=== PATIENT | female | born 1955 | race Caucasian/White ===

== ENCOUNTER → 2018-12-24 | Outpatient (CLI) | payer SELFPAY ==
[2018-12-24 09:47] LABS: ALANINE AMINOTRANSFERASE 22 U/L (0-55); ALBUMIN 4.4 GM/DL (3.2-4.5); ALKALINE PHOSPHATASE 85 U/L (40-136); BILIRUBIN,TOTAL 0.5 MG/DL (0.1-1.0); BUN/CREATININE RATIO 14; CALCIUM 9.6 MG/DL (8.5-10.1); CARBON DIOXIDE 31 MMOL/L (21-32); CHLORIDE 99 MMOL/L (98-107); CREATININE SERUM 0.83 MG/DL (0.60-1.30); GFR ESTIMATED > 60; GLUCOSE 110 MG/DL (70-105); POTASSIUM 4.2 MMOL/L (3.6-5.0); SODIUM 142 MMOL/L (135-145); TOTAL PROTEIN 7.1 GM/DL (6.4-8.2)
== END ==
LOC: LAB FS 08:33
PROVIDERS: ATTEND Pediatrics
DX: E11.9 Type 2 diabetes mellitus without complications (principal); Z79.4 Long term (current) use of insulin
CPT/HCPCS: 36415; 80053; 83036

== ENCOUNTER 2019-01-02 09:00 | Emergency (ER) | payer SELFPAY ==
[~2019-01-02] VITALS: Ht 157.5 cm; Wt 73.9 kg
--- NOTE | 2019-01-02 09:09 | ED Chest Pain ---
General Stated Complaint: CHEST PAIN; SOB; BACK PAIN Source: patient Exam Limitations: no limitations History of Present Illness Date Seen by Provider: Jan 02, 2019 Time Seen by Provider: 09:04 Initial Comments Patient presents to ER by private conveyance with chief complaint that just prior to arrival she was getting up to get her grandson some breakfast and she stood up and had a sharp pain in her back just left of her spine, medial to the scapula, radiating around to her left front chest. It is not worse to palpation but it is worse with deep inspiration. She has no history of coronary disease nor does she have a history of lung disease. She's not been coughing but she did start feel short of breath after the pain started. She rated her pain initially as an 8 out of 10 and now a 6 out of 10 at rest. She's noticed no swelling in her hands or feet, fever or nausea. She did have some diaphoresis when it started. She is diabetic and checked her blood sugar was running in the 90s this morning. She's been on insulin for over 10 years. She has high blood pressure but no cholesterol thyroid or history of coronary disease. She is known to Dr. Rain. She does not take antiplatelet or anticoagulants and has an allergy to NSAIDs and aspirin as it causes generalized swelling. She quit smoking 2 pack per day in 1994. 10 years ago she had a chest pain very similar to this and was worked up by a drupal php developer and had a negative stress test. She does not follow with a drupal php developer now. One week ago she had an appointment with Dr. Rain and her A1c was elevated at 7.5 but her blood pressure was good. She has not taken her metoprolol 200 mg this morning. She does not use anything else for blood pressure control. She has a history of a hiatal hernia not on antacids. Allergies and Home Medications Allergies Coded Allergies: NSAIDS (Non-Steroidal Anti-Inflamma (Verified Allergy, Unknown, 01/02/19) swelling aspirin (Verified Allergy, Unknown, 01/02/19) swelling Patient Home Medication List Home Medication List Reviewed: Yes Review of Systems Review of Systems Constitutional: No chills; diaphoresis, dizziness; No fever, No malaise EENTM: No Blurred Vision, No Double Vision Respiratory: Denies Cough, Denies Shortness of Air, Denies SOA With Exertion Cardiovascular: See HPI, Chest Pain; Denies Edema Gastrointestinal: Denies Abdomen Distended, Denies Abdominal Pain, Denies Constipated, Denies Diarrhea, Denies Nausea Genitourinary: Denies Discharge, Denies Drainage Musculoskeletal: No back pain, No joint pain Skin: No pruritus, No rash Past Tbsnqds-Ehixrn-Mxquve Hx Patient Social History Alcohol Use: Denies Use Recreational Drug Use: No Smoking Status: Former Smoker Type Used: Cigarettes Former Smoker, Quit: Jan 04, 1995 Physical Exam Vital Signs Vital Signs - First Documented 01/02/19 09:10 Temp 99.0 Pulse 85 Resp 12 B/P (MAP) 223/119 (153) Pulse Ox 98 O2 Delivery Room Air Capillary Refill : Height, Weight, BMI Height: '" Weight: lbs. oz. kg; BMI Method: General Appearance: WD/WN, Anxious, Mild Distress HEENT: Pharynx Normal, Moist Mucous Membranes Neck: Full Range of Motion, Normal Inspection Respiratory: Chest Non Tender, Lungs Clear, Normal Breath Sounds, No Accessory Muscle Use, No Respiratory Distress Cardiovascular: Regular Rate, Rhythm, No Edema, No Gallop, No JVD, No Murmur, Normal Peripheral Pulses Gastrointestinal: Normal Bowel Sounds, Non Tender, Soft Extremity: Normal Capillary Refill, Non Tender, No Pedal Edema Neurologic/Psychiatric: Alert, Oriented x3 Skin: Normal Color, Warm/Dry Progress/Results/Core Measures Results/Orders Lab Results Laboratory Tests Test 01/02/19 09:10 01/02/19 09:44 01/02/19 11:37 01/02/19 12:30 Range/Units White Blood Count 7.8 4.3-11.0 10^3/uL Red Blood Count 5.34 4.35-5.85 10^6/uL Hemoglobin 15.2 11.5-16.0 G/DL Hematocrit 44 35-52 % Mean Corpuscular Volume 82 80-99 FL Mean Corpuscular Hemoglobin 28 25-34 PG Mean Corpuscular Hemoglobin Concent 35 32-36 G/DL Red Cell Distribution Width 13.2 10.0-14.5 % Platelet Count 127 L 130-400 10^3/uL Mean Platelet Volume 9.6 7.4-10.4 FL Neutrophils (%) (Auto) 55 42-75 % Lymphocytes (%) (Auto) 36 12-44 % Monocytes (%) (Auto) 6 0-12 % Eosinophils (%) (Auto) 1 0-10 % Basophils (%) (Auto) 1 0-10 % Neutrophils # (Auto) 4.3 1.8-7.8 X 10^3 Lymphocytes # (Auto) 2.8 1.0-4.0 X 10^3 Monocytes # (Auto) 0.5 0.0-1.0 X 10^3 Eosinophils # (Auto) 0.1 0.0-0.3 10^3/uL Basophils # (Auto) 0.0 0.0-0.1 10^3/uL Prothrombin Time 13.2 12.2-14.7 SEC INR Comment 1.0 0.8-1.4 Activated Partial Thromboplast Time 50 H 24-35 SEC D-Dimer 0.36 0.00-0.49 UG/ML Sodium Level 139 135-145 MMOL/L Potassium Level 3.8 3.6-5.0 MMOL/L Chloride Level 96 L 98-107 MMOL/L Carbon Dioxide Level 24 21-32 MMOL/L Anion Gap 19 H 5-14 MMOL/L Blood Urea Nitrogen 18 7-18 MG/DL Creatinine 0.80 0.60-1.30 MG/DL Estimat Glomerular Filtration Rate > 60 BUN/Creatinine Ratio 23 Glucose Level 97 70-105 MG/DL Calcium Level 9.9 8.5-10.1 MG/DL Corrected Calcium 8.5-10.1 MG/DL Magnesium Level 1.7 L 1.8-2.4 MG/DL Total Bilirubin 0.6 0.1-1.0 MG/DL Aspartate Amino Transf (AST/SGOT) 23 5-34 U/L Alanine Aminotransferase (ALT/SGPT) 22 0-55 U/L Alkaline Phosphatase 88 40-136 U/L Myoglobin < 21.0 10.0-92.0 NG/ML Troponin T < 6 < 6 <=10 NG/L Total Protein 7.9 6.4-8.2 GM/DL Albumin 4.8 H 3.2-4.5 GM/DL Lipase 33 8-78 U/L Urine Color PALE YELLOW Urine Clarity CLEAR Urine pH 7.5 5-9 Urine Specific [place] 1.010 L 1.016-1.022 Urine Protein 2+ H NEGATIVE Urine Glucose (UA) NEGATIVE NEGATIVE Urine Ketones NEGATIVE NEGATIVE Urine Nitrite NEGATIVE NEGATIVE Urine Bilirubin NEGATIVE NEGATIVE Urine Urobilinogen 0.2 NORMAL MG/DL Urine Leukocyte Esterase NEGATIVE NEGATIVE Urine RBC (Auto) NEGATIVE NEGATIVE Urine RBC NONE /HPF Urine WBC 0-2 /HPF Urine Squamous Epithelial Cells 0-2 /HPF Urine Crystals NONE /LPF Urine Bacteria NEGATIVE /HPF Urine Casts NONE /LPF Urine Mucus NONE /LPF Urine Culture Indicated NO Glucometer 62 L 70-110 MG/DL My Orders Orders - GEOFF,KEYON J Cbc With Automated Diff (01/02/19 09:09) Magnesium (01/02/19 09:09) Chest 1 View Ap/Pa Only (01/02/19 09:09) Ekg Tracing (01/02/19 09:09) Comprehensive Metabolic Panel (01/02/19 09:09) Myoglobin Serum (01/02/19 09:09) Protime With Inr (01/02/19 09:09) Partial Thromboplastin Time (01/02/19 09:09) O2 (01/02/19 09:09) Monitor-Rhythm Ecg Trace Only (01/02/19 09:09) Lipid Panel (01/03/19 06:00) Nitroglycerin 0.4 Mg Btl 25's (Nitrostat (01/02/19 09:15) Ed Iv/Invasive Line Start (01/02/19 09:09) Lipase (01/02/19 09:09) Fibrin Degradation Products (01/02/19 09:09) Troponin T (01/02/19 09:09) Ua Culture If Indicated (01/02/19 09:46) Lidocaine 2% Viscous 15 Ml (Xylocaine Vi (01/02/19 10:30) Famotidine Tablet (Pepcid Tablet) (01/02/19 10:18) Antacid Suspension (Mylanta Suspension (01/02/19 10:30) Ct Angio Chest W (01/02/19 10:47) Ed Iv/Invasive Line Start (01/02/19 10:47) Ns Iv 500 Ml (Sodium Chloride 0.9%) (01/02/19 10:47) Morphine Injection (Morphine Injection (01/02/19 10:47) Troponin T (01/02/19 12:00) Ekg Tracing (01/02/19 12:00) Iohexol Injection (Omnipaque 350 Mg/Ml 1 (01/02/19 11:00) Received Contrast (Hold Metformin- Contr (01/02/19 11:00) Sodium Chloride Flush (Catheter Flush Sy (01/02/19 11:00) Ns (Ivpb) (Sodium Chloride 0.9% Ivpb Bag (01/02/19 11:00) Metoprolol Succinate (Xl) Tab (Toprol Xl (01/02/19 11:30) Hydralazine Injection (Apresoline Inject (01/02/19 11:30) Accucheck Stat ONCE (01/02/19 11:35) Cho 75g/M 0snack (21-2400 Lul) (01/02/19 Lunch) Ondansetron Injection (Zofran Injectio (01/02/19 13:15) Medications Given in ED Current Medications Medications Dose Ordered Sig/Deandra Route Start Time Stop Time Status Last Admin Dose Admin Al Hydrox/Mg Hydrox/Simethicone 30 ml ONCE ONCE PO 01/02/19 10:30 01/02/19 10:31 DC 01/02/19 10:23 30 ML Hydralazine HCl 10 mg ONCE ONCE IV 01/02/19 11:30 01/02/19 11:31 DC 01/02/19 11:40 10 MG Iohexol 125 ml ONCE ONCE IV 01/02/19 11:00 01/02/19 11:01 DC 01/02/19 11:17 125 ML Lidocaine HCl 15 ml ONCE ONCE PO 01/02/19 10:30 01/02/19 10:31 DC 01/02/19 10:23 15 ML Nitroglycerin 0.4 mg UD PRN SL 01/02/19 09:15 01/02/19 09:15 0.4 MG Ondansetron HCl 8 mg ONCE ONCE IVP 01/02/19 13:15 01/02/19 13:16 DC 01/02/19 13:15 8 MG Sodium Chloride 10 ml NEEDED PRN IV 01/02/19 11:00 01/02/19 11:17 10 ML Sodium Chloride 100 ml ONCE ONCE IV 01/02/19 11:00 01/02/19 11:01 DC 01/02/19 11:17 100 ML Sodium Chloride 500 ml @ 0 mls/hr Q0M ONCE IV 01/02/19 10:47 01/02/19 10:49 DC 01/02/19 10:57 500 MLS/HR Vital Signs/I&O 01/02/19 01/02/19 09:10 09:10 Temp 99.0 Pulse 85 Resp 12 B/P (MAP) 223/119 (153) Pulse Ox 98 O2 Delivery Room Air Room Air Progress Progress Note #1: Time: : Progress Note Initial EKG unremarkable. We will give her some nitroglycerin. Aspirin will be skipped due to her stated allergy. Her blood pressure is significantly elevated at 223/119 without tachycardia. We will reassess this after the nitroglycerin. Differential includes CAD or other heart related injury, pulmonary embolism, thoracic aneurysm, pneumonia/bronchospasm, other. D-dimer obtained. Well's Score 0 points. Low risk group: 1.3% chance of PE in an ED population. D- Dimer not indicated and only useful if negative. ED ACS 9 points. Low risk by the EDACS Score. If the patient also has: (1) EKG without new ischemic changes and (2) negative initial and 2-hour troponins, then this patient is safe for discharge to early outpatient follow-up investigation (or proceed to earlier inpatient testing). If EKG with ischemic changes or positive troponin, they are not low risk and require normal risk stratification. 0935: After the initial dose of nitroglycerin and her pain is down from a 6 to a 2 out of 10. Her blood pressure has dropped to 176/107. Heart rate still in the 80s. We will not give her further nitroglycerin. Progress Note #2: Time: :19 Progress Note The patient's pain is all but gone. Initial troponin is negative. D-dimer is also within normal limits ruling out a pulmonary embolism however even though there is no widened mediastinum on chest x-ray and cannot definitively say there is not aneurysmal widening of the thoracic great vessels. Her blood pressure is still significantly elevated to 173/89. The plan is to leverage her remaining chest discomfort by giving her a GI cocktail and see if that makes a difference. She's had a stomach wrap for her hiatal hernia over a decade ago. No hiatal hernia is appreciated on the plain film. If the GI cocktail helps then perhaps this was an esophageal spasm. If we can get outpatient cardiology follow-up in a reasonable amount of time than we can plan to do a 4 hour delta troponin at noon along with a repeat EKG plus or minus CT angiogram of the chest. Progress Note #3: Time: 11:29 Progress Note After 4 mg of morphine the patient's pain completely went away however her blood pressure started to mount back up again from its [place] of 170 systolic back to 219 presently. She now informs me she did take the metoprolol this morning her heart rate has not been particularly suppressed its been in the 70s and 80s. We'll going give her some hydralazine IV 10 mg now. Goal of 180 systolic. Patient's blood sugar is 62 so we're going to allow her to eat. Initial ECG Impression Date: Jan 02, 2019 Initial ECG Impression Time: 09:07 Initial ECG Rate: 94 Initial ECG Rhythm: Normal Sinus Initial ECG Intervals: Normal Initial ECG Impression: Normal Initial ECG Comparisson: No Previous ECG Available Comment There is some minor respiratory motion artifact but the study is adequate enough to demonstrate no significant ST elevation or depression. EKG : EKG Time: 11:32 Rate: 67 Rhythm: Normal Sinus Intervals: Normal, QT (463 ms) ECG Comparisson: Changed ECG Impression: Normal, Nonspecific Changes Comment No clinically evident ST elevation or depression however there are some inverted T waves in the anterior leads. No certain clinical significance but the T-wave in lead V2 earlier was positive and leads V1, V3 were very low voltage negative deflected. Now lead V2 is negative and this probably is a reflection of lead placement. Diagnostic Imaging Diagonstic Imaging: Xray Plain Films/CT/US/NM/MRI: chest (1v) Comments No acute cardiopulmonary processes apparent. Non-widened mediastinum with normal size aortic silhouette. NAME: ASHLEY TYSON [facility] REC#: [id number] PT STATUS: REG ER : 1955 PHYSICIAN: KEYON GALLOWAY MD ADMIT DATE: 01/02/19/ER FS Draft Date of Exam:01/02/19 CHEST 1 VIEW AP/PA ONLY Indication: Chest pain Portable chest 9:05 AM Heart size and pulmonary vascularity are normal. Lungs are clear. There are no effusions or pneumothoraces. Impression: Negative chest. Dictated on workstation # [id number] Dict: [birth year]/1928 Trans: 01/02/19 0929 [facility] [id number] Interpreted by: GIRMA ELMORE MD Electronically signed by: Reviewed: Reviewed by Me Diagonstic Imaging: CT (angiogram) Plain Films/CT/US/NM/MRI: chest Comments No filling defect, pulmonary embolism, thoracic aortic aneurysm or dissection. No acute intrathoracic process noted. To low density nodules noted in the left lower thyroid which need worked up outpatient. History of breast biopsy and no record of mammograms recently. Would recommend that she stay up-to-date. NAME: ASHLEY TYSON [facility] REC#: [id number] PT STATUS: REG ER : 1955 PHYSICIAN: KEYON GALLOWAY MD ADMIT DATE: 01/02/19/ER FS Signed Date of Exam:01/02/19 CT ANGIO CHEST W PROCEDURE: CT angiography of the chest with contrast. TECHNIQUE: Multiple contiguous axial images were obtained through the chest after uneventful bolus administration of intravenous contrast. 2D reconstructed CTA MIP acquisitions were also performed. Auto Exposure Controls were utilized during the CT exam to meet ALARA standards for radiation dose reduction. INDICATION: Shortness of breath There are no prior CTA chest examinations available for comparison. The plain film examination of the chest performed earlier today failed to show any sign of an acute cardiopulmonary abnormality. There is no defect within the pulmonary arteries to indicate a pulmonary embolus. Aorta isn't abnormally dilated. There is no sign of a dissection. The heart size is within normal limits. There are no coronary artery calcifications identified. The lungs are clear. There is no sign of failure, pneumonia or a pleural effusion to indicate an acute abnormality. There is no parenchymal lung mass identified. There is no mediastinal or hilar adenopathy. There are 2 small low-density nodules in the inferior pole of the left lobe of thyroid. The larger of the 2 measures 6.7 mm. These nodules are most likely benign. Even so, ultrasound would be recommended for further study. There is no obvious breast mass. The patient has had a prior lumpectomy on the left and there is a surgical clip in the left breast. The sections through the upper abdomen fail to show any sign of an acute abnormality. The gallbladder is surgically absent. There are also surgical clips in the left upper quadrant. The bone windows are unremarkable for a fracture or for a destructive lesion. Impression: 1. There is no evidence for an acute cardiopulmonary abnormality. There is no sign of a pulmonary embolus or a dissection. 2. The small low density nodules in the inferior pole of the left lobe of thyroid are most likely benign. A nonemergent thyroid ultrasound exam would be recommended for further study however. 3. These results were discussed with Dr. Galloway in the ER. Dictated by: Dictated on workstation # [id number] Dict: 01/02/19 1136 Trans: 01/02/19 1205 [facility] [id number] Interpreted by: BLUE CARRINGTON MD Electronically signed by: BLUE CARRINGTON MD 01/02/19 1205 Reviewed: Reviewed by Me, Discussed w/Radiologist (Dr. Carrington) Consults : Consulting Physician: KATIE FATIMA MD Consults Notes Discussed case lab EKG history and findings with nitroglycerin and GI cocktail. He agrees with trying to do a rule out in the ER however she still having chest pain then he would recommend observation at that time. He can follow her up in the clinic tomorrow morning. Departure Impression Primary Impression: Chest pain Qualified Codes: R07.9 - Chest pain, unspecified Additional Impressions: 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 Qualified Codes: I10 - Essential (primary) hypertension Thyroid nodule History of breast biopsy Disposition: HOME, SELF-CARE Condition: Improved Departure-Patient Inst. Decision time for Depature: 13:30 Referrals: ASHLEY RAIN MD (PCP/Family) Primary Care Physician KATIE FATIMA MD Patient Instructions: Chest Pain (DC), High Blood Pressure in Adults Add. Discharge Instructions: Call Dr. Fatima's clinic today and request a follow-up appointment tomorrow morning. You may use the nitroglycerin one tablet under the tongue every 5 minutes if you have recurrence of your chest pain however if you take more than 3 in a row then you should return to the ER for further evaluation. Follow-up with your primary care doctor's office for appropriate, outpatient workup of your thyroid nodule. Make sure you're up-to-date on mammography by discussing this preventative practice with Dr. Rain. Scripts Ondansetron (Ondansetron Odt) 4 Mg Tab.rapdis 4 MG PO Q6H PRN for NAUSEA/VOMITING, #8 TAB 0 Refills Prov: KEYON GALLOWAY 01/02/19 Copy Copies To 1: ASHLEY RAIN MD, TITUS J Jan 02, 2019 09:08
[2019-01-02] MEDS ORDERED: NITROGLYCERIN 0.4 MG SL TABS BTL 25'S SL PRN (09:15)
[2019-01-02 09:22] LABS: HEMATOCRIT 44 % (35-52); HEMOGLOBIN 15.2 G/DL (11.5-16.0); MEAN CORPUSCULAR HEMOGLOBIN 28 PG (25-34); MEAN CORPUSCULAR HGB CONC 35 G/DL (32-36); MEAN CORPUSCULAR VOLUME 82 FL (80-99); PLATELET COUNT 127 10^3/uL (130-400); RED CELL DISTRIBUTION WIDTH 13.2 % (10.0-14.5); WHITE BLOOD COUNT 7.8 10^3/uL (4.3-11.0)
[2019-01-02 09:23] LABS: BASOPHILS % (AUTO) 1 % (0-10); EOSINOPHILS # (AUTO) 0.1 10^3/uL (0.0-0.3); EOSINOPHILS % (AUTO) 1 % (0-10); LYMPHOCYTES # (AUTO) 2.8 X 10^3 (1.0-4.0); LYMPHOCYTES % (AUTO) 36 % (12-44); MEAN PLATELET VOLUME 9.6 FL (7.4-10.4); MONOCYTES # (AUTO) 0.5 X 10^3 (0.0-1.0); MONOCYTES % (AUTO) 6 % (0-12); NEUTROPHILS # (AUTO) 4.3 X 10^3 (1.8-7.8); NEUTROPHILS % (AUTO) 55 % (42-75)
--- NOTE | 2019-01-02 09:30 | Diagnostic Imaging Report ---
Indication: Chest pain Portable chest 9:05 AM Heart size and pulmonary vascularity are normal. Lungs are clear. There are no effusions or pneumothoraces. Impression: Negative chest. Dictated by: Dictated on workstation # [id number]
[2019-01-02 09:37] LABS: PROTHROMBIN TIME PATIENT 13.2 SEC (12.2-14.7)
[2019-01-02 09:43] LABS: BUN/CREATININE RATIO 23; CARBON DIOXIDE 24 MMOL/L (21-32); CHLORIDE 96 MMOL/L (98-107); GFR ESTIMATED > 60; POTASSIUM 3.8 MMOL/L (3.6-5.0); SODIUM 139 MMOL/L (135-145)
[2019-01-02 09:51] LABS: ALANINE AMINOTRANSFERASE 22 U/L (0-55); ALKALINE PHOSPHATASE 88 U/L (40-136); BILIRUBIN,TOTAL 0.6 MG/DL (0.1-1.0); CALCIUM 9.9 MG/DL (8.5-10.1); GLUCOSE 97 MG/DL (70-105); MAGNESIUM 1.7 MG/DL (1.8-2.4); TOTAL PROTEIN 7.9 GM/DL (6.4-8.2)
[2019-01-02 09:52] LABS: ALBUMIN 4.8 GM/DL (3.2-4.5); LIPASE 33 U/L (8-78)
[2019-01-02 10:02] LABS: BACTERIA,URINE NEGATIVE /HPF; BILIRUBIN,URINE NEGATIVE (NEGATIVE); CLARITY,URINE CLEAR; COLOR,URINE PALE YELLOW; GLUCOSE, URINE (UA) NEGATIVE (NEGATIVE); KETONES,URINE NEGATIVE (NEGATIVE); LEUKOCYTE ESTERASE ,URINE NEGATIVE (NEGATIVE); NITRITE,URINE NEGATIVE (NEGATIVE); PH,URINE 7.5 (5-9); PROTEIN,URINE 2+ (NEGATIVE); SQUAMOUS EPITHELIAL CELL,UR 0-2 /HPF; UROBILINOGEN,URINE 0.2 MG/DL (NORMAL); WBC,URINE 0-2 /HPF
[2019-01-02] MEDS ORDERED: FAMOTIDINE 20 MG (PEPCID) TABLET PO STA (10:18)
[2019-01-02] MEDS ORDERED: ANTACID SUSP 30 ML UDC (MYLANTA) PO ONE (10:30)
[2019-01-02] MEDS ORDERED: LIDOCAINE 2% VISCOUS 15 ML UDC PO ONE (10:30)
[2019-01-02] MEDS ORDERED: NS IV 500 ML 500 ML IV ONE (10:47)
[2019-01-02] MEDS ORDERED: morphine INJ 10 MG/ML 1ML (SYR OR VIAL) IVP STA (10:47)
[2019-01-02] MEDS ORDERED: HOLD METFORMIN - RECEIVED CONTRAST 20 ML VIAL IV SCH (11:00)
[2019-01-02] MEDS ORDERED: CATHETER FLUSH 10 ML SYR IV PRN (11:00)
[2019-01-02] MEDS ORDERED: NS 100 ML (IVPB) BAG IV ONE (11:00)
[2019-01-02] MEDS ORDERED: IOHEXOL 350 MG/ML 150 ML (OMNIPAQUE 350) VIAL IV ONE (11:00)
[2019-01-02] MEDS ORDERED: meTOprolol SUCCINATE 100 MG (TOPROL XL) TAB PO ONE (11:30)
[2019-01-02] MEDS ORDERED: hydrALAZINE (APESOLINE) 20 MG/ML VIAL IV ONE (11:30)
--- NOTE | 2019-01-02 12:03 | Diagnostic Imaging Report ---
PROCEDURE: CT angiography of the chest with contrast. TECHNIQUE: Multiple contiguous axial images were obtained through the chest after uneventful bolus administration of intravenous contrast. 2D reconstructed CTA MIP acquisitions were also performed. Auto Exposure Controls were utilized during the CT exam to meet ALARA standards for radiation dose reduction. INDICATION: Shortness of breath There are no prior CTA chest examinations available for comparison. The plain film examination of the chest performed earlier today failed to show any sign of an acute cardiopulmonary abnormality. There is no defect within the pulmonary arteries to indicate a pulmonary embolus. Aorta isn't abnormally dilated. There is no sign of a dissection. The heart size is within normal limits. There are no coronary artery calcifications identified. The lungs are clear. There is no sign of failure, pneumonia or a pleural effusion to indicate an acute abnormality. There is no parenchymal lung mass identified. There is no mediastinal or hilar adenopathy. There are 2 small low-density nodules in the inferior pole of the left lobe of thyroid. The larger of the 2 measures 6.7 mm. These nodules are most likely benign. Even so, ultrasound would be recommended for further study. There is no obvious breast mass. The patient has had a prior lumpectomy on the left and there is a surgical clip in the left breast. The sections through the upper abdomen fail to show any sign of an acute abnormality. The gallbladder is surgically absent. There are also surgical clips in the left upper quadrant. The bone windows are unremarkable for a fracture or for a destructive lesion. Impression: 1. There is no evidence for an acute cardiopulmonary abnormality. There is no sign of a pulmonary embolus or a dissection. 2. The small low density nodules in the inferior pole of the left lobe of thyroid are most likely benign. A nonemergent thyroid ultrasound exam would be recommended for further study however. 3. These results were discussed with Dr. Galloway in the ER. Dictated by: Dictated on workstation # [id number]
[2019-01-02] MEDS ORDERED: ONDANSETRON 4 MG/2 ML (SDV) Z0FRAN IVP ONE (13:15)
[2019-01-02] MEDS ORDERED: ONDA4TAB11 PO (13:35)
[2019-01-02 13:45] VITALS: BP 147/83
== END 2019-01-02 13:45 | disposition home or self-care (01) ==
LOC: EDUNIT# 09:00 → ER FS 09:02
DX: R07.89 Other chest pain (principal); I10 Essential (primary) hypertension; E04.1 Nontoxic single thyroid nodule; Z88.6 Allergy status to analgesic agent; Z87.891 Personal history of nicotine dependence; Z98.890 Other specified postprocedural states
CPT/HCPCS: 36415; 71045; 71275; 80053; 81000; 82962; 83690; 83735; 83874; 84484; 85025; 85379; 85610; 85730; 93005; 93041; 96361; 96374; 96375

== ENCOUNTER 2019-09-10 09:18 | Emergency (ER) | payer SELFPAY ==
[~2019-09-10] VITALS: Ht 157 cm; Wt 80.0 kg
[~2019-09-10 09:18] MED LIST: ONDA4TAB11 PO
[2019-09-10] MEDS ORDERED: NS IV 1000 ML 1,000 ML IV SCH ×2 (09:45→12:00)
[2019-09-10 10:03] LABS: BASOPHILS % (AUTO) 0 % (0-10); EOSINOPHILS % (AUTO) 0 % (0-10); HEMATOCRIT 44 % (35-52); HEMOGLOBIN 15.2 G/DL (11.5-16.0); LYMPHOCYTES % (AUTO) 6 % (12-44); MEAN CORPUSCULAR HEMOGLOBIN 29 PG (25-34); MEAN CORPUSCULAR HGB CONC 35 G/DL (32-36); MEAN CORPUSCULAR VOLUME 84 FL (80-99); MEAN PLATELET VOLUME 9.5 FL (7.4-10.4); MONOCYTES % (AUTO) 4 % (0-12); NEUTROPHILS % (AUTO) 89 % (42-75); PLATELET COUNT 158 10^3/uL (130-400); RED CELL DISTRIBUTION WIDTH 13.4 % (10.0-14.5); WHITE BLOOD COUNT 11.2 10^3/uL (4.3-11.0)
[2019-09-10 10:04] LABS: LYMPHOCYTES # (AUTO) 0.6 X 10^3 (1.0-4.0); MONOCYTES # (AUTO) 0.5 X 10^3 (0.0-1.0); NEUTROPHILS # (AUTO) 9.9 X 10^3 (1.8-7.8)
--- NOTE | 2019-09-10 10:14 | ED GI ---
General Chief Complaint: Abdominal/GI Problems Stated Complaint: VOMITING; DIARRHEA Nursing Triage Note: PT REPORTS SHE STARTED HAVING NASUEA AND SOME DIARRHEA AT AROUND 2030 LAST PM. SHE PRESENTED TO [facility] THIS AM AND SHE REPORTS THEY CHECKED HER URINE, BLOOD SUGAR, AND GAVE HER AN ODT ZOFRAN. SHE IS NO LONGER NAUSEATED. HER BLOOD SUGAR IN THE CLINIC WAS 325, PT REPORTS SHE HAS NOT TAKEN HER INSULIN OR METFORMIN THIS AM BC SHE NORMALLY DOESNT TAKE IT UNTIL ABOUT 1000. Sepsis Screen: No Definite Risk Source of Information: Patient Exam Limitations: No Limitations History of Present Illness Date Seen by Provider: Sep 10, 2019 Time Seen by Provider: 09:45 Initial Comments The patient is a pleasant 64-year-old female who presents for evaluation of nausea, vomiting, and diarrhea which started around 2030 last night. She went to an outpatient clinic today where they checked her urine and found some ketones, noted that her blood sugar was 325, and treated her nausea with Zofran. She is an insulin-dependent diabetic who also takes metformin. She says that since the Zofran she has not been nauseated. She reports some generalized abdominal cramping but no significant pain. She denies fevers or chills, chest pain or shortness of breath, back or flank pain, urinary complaints, dizziness, rectal bleeding, or hematemesis. She states that she doesn't really vomit but has more of a dry heaving. She is alert and oriented 4, calm, and appears to be in no distress at this time. She states that her last meal before symptoms was a meal prepared at home which her ate and he is not having any symptoms. Location: Generalized Abdomen Radiation: No Radiation Activities at Onset: None Allergies and Home Medications Allergies Coded Allergies: NSAIDS (Non-Steroidal Anti-Inflamma (Verified Allergy, Unknown, 01/02/19) swelling aspirin (Verified Allergy, Unknown, 01/02/19) swelling Home Medications Ondansetron 4 Mg Tab.rapdis, 4 MG PO Q6H PRN for NAUSEA/VOMITING Prescribed by: EKYON TELLEZ on 01/02/19 4186 Patient Home Medication List Home Medication List Reviewed: Yes Review of Systems Review of Systems Constitutional: no symptoms reported EENTM: No Symptoms Reported Respiratory: No Symptoms Reported Cardiovascular: No Symptoms Reported Gastrointestinal: Diarrhea, Nausea, Vomiting Genitourinary: No Symptoms Reported Musculoskeletal: no symptoms reported Skin: no symptoms reported Psychiatric/Neurological: No Symptoms Reported Endocrine: No Symptoms Reported Hematologic/Lymphatic: No Symptoms Reported All Other Systems Reviewed Negative Unless Noted: Yes Past Uwgvzoz-Hleejn-Vizpdl Hx Past Med/Social Hx: Reviewed Nursing Past Med/Soc Hx Patient Social History Alcohol Use: Denies Use Recreational Drug Use: No Smoking Status: Former Smoker Type Used: Cigarettes Former Smoker, Quit: Jan 04, 1995 2nd Hand Smoke Exposure: No Recent Foreign Travel: No Contact w/Someone Who Travel: No Recent Infectious Disease Expo: No Recent Hopitalizations: No Physical Abuse: No Sexual Abuse: No Mistreated: No Fear: No Seasonal Allergies Seasonal Allergies: No Past Medical History Surgeries: Yes (Breast reduction, Jossue Fundoplication,HERNIA) Breast, Hysterectomy Respiratory: No Cardiac: Yes 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 Neurological: No [employer] History: Hysterectomy Genitourinary: No Gastrointestinal: Yes Hiatal Hernia Musculoskeletal: Yes (TENDONITIS, LEFT SHOULDER CAPSULITIS) Arthritis, Back Injury, Chronic Back Pain Endocrine: No Diabetes, Insulin dep HEENT: Yes Glaucoma Cancer: No Psychosocial: No Blood Disorders: No Physical Exam Vital Signs Vital Signs - First Documented 09/10/19 09:39 Temp 36.9 Pulse 106 Resp 18 B/P (MAP) 166/87 (113) O2 Delivery Room Air Capillary Refill : Less Than 3 Seconds Height/Weight/BMI Height: 5'2.00" Weight: 163lbs. 0oz. 73.486602bm; 32.00 BMI Method:Stated General Appearance: WD/WN, no apparent distress HEENT: PERRL/EOMI, normal ENT inspection Neck: non-tender, full range of motion, supple Respiratory: chest non-tender, lungs clear, normal breath sounds, no respiratory distress Cardiovascular: regular rate, rhythm, no edema, no JVD Gastrointestinal: normal bowel sounds, non tender, soft, no pulsatile mass, abnormal bowel sounds (hyperactive) Extremities: normal range of motion, non-tender, normal inspection, no pedal edema Neurologic/Psychiatric: float tender II-XII nml as tested, no motor/sensory deficits, alert, normal mood/affect, oriented x 3 Skin: normal color, warm/dry Progress/Results/Core Measures Results/Orders Lab Results Laboratory Tests Test 09/10/19 09:50 09/10/19 10:43 Range/Units White Blood Count 11.2 H 4.3-11.0 10^3/uL Red Blood Count 5.23 4.35-5.85 10^6/uL Hemoglobin 15.2 11.5-16.0 G/DL Hematocrit 44 35-52 % Mean Corpuscular Volume 84 80-99 FL Mean Corpuscular Hemoglobin 29 25-34 PG Mean Corpuscular Hemoglobin Concent 35 32-36 G/DL Red Cell Distribution Width 13.4 10.0-14.5 % Platelet Count 158 130-400 10^3/uL Mean Platelet Volume 9.5 7.4-10.4 FL Neutrophils (%) (Auto) 89 H 42-75 % Lymphocytes (%) (Auto) 6 L 12-44 % Monocytes (%) (Auto) 4 0-12 % Eosinophils (%) (Auto) 0 0-10 % Basophils (%) (Auto) 0 0-10 % Neutrophils # (Auto) 9.9 H 1.8-7.8 X 10^3 Lymphocytes # (Auto) 0.6 L 1.0-4.0 X 10^3 Monocytes # (Auto) 0.5 0.0-1.0 X 10^3 Eosinophils # (Auto) 0.0 0.0-0.3 10^3/uL Basophils # (Auto) 0.0 0.0-0.1 10^3/uL Neutrophils % (Manual) 72 % Lymphocytes % (Manual) 9 % Monocytes % (Manual) 3 % Eosinophils % (Manual) 2 % Basophils % (Manual) 0 % Metamyelocytes % 1 % Band Neutrophils 13 % Blood Morphology Comment NORMAL Sodium Level 136 135-145 MMOL/L Potassium Level 4.7 3.6-5.0 MMOL/L Chloride Level 100 98-107 MMOL/L Carbon Dioxide Level 19 L 21-32 MMOL/L Anion Gap 17 H 5-14 MMOL/L Blood Urea Nitrogen 25 H 7-18 MG/DL Creatinine 0.78 0.60-1.30 MG/DL Estimat Glomerular Filtration Rate > 60 BUN/Creatinine Ratio 32 Glucose Level 350 H 70-105 MG/DL Calcium Level 8.5 8.5-10.1 MG/DL Corrected Calcium 8.5 8.5-10.1 MG/DL Total Bilirubin 0.7 0.1-1.0 MG/DL Aspartate Amino Transf (AST/SGOT) 33 5-34 U/L Alanine Aminotransferase (ALT/SGPT) 28 0-55 U/L Alkaline Phosphatase 86 40-136 U/L Total Protein 6.9 6.4-8.2 GM/DL Albumin 4.0 3.2-4.5 GM/DL Lipase 14 8-78 U/L Urine Color YELLOW Urine Clarity CLEAR Urine pH 5.5 5-9 Urine Specific [place] 1.020 1.016-1.022 Urine Protein 1+ H NEGATIVE Urine Glucose (UA) 3+ H NEGATIVE Urine Ketones 2+ H NEGATIVE Urine Nitrite NEGATIVE NEGATIVE Urine Bilirubin NEGATIVE NEGATIVE Urine Urobilinogen 0.2 < = 1.0 MG/DL Urine Leukocyte Esterase NEGATIVE NEGATIVE Urine RBC (Auto) NEGATIVE NEGATIVE Urine RBC NONE /HPF Urine WBC NONE /HPF Urine Squamous Epithelial Cells 2-5 /HPF Urine Crystals NONE /LPF Urine Bacteria MODERATE H /HPF Urine Casts NONE /LPF Urine Mucus NEGATIVE /LPF Urine Culture Indicated NO My Orders Orders - WES BRYANT DO Cbc With Automated Diff (09/10/19 09:38) Comprehensive Metabolic Panel (09/10/19 09:38) Ns Iv 1000 Ml (Sodium Chloride 0.9%) (09/10/19 09:45) Lipase (09/10/19 09:38) Ua Culture If Indicated (09/10/19 09:38) Manual Differential (09/10/19 09:50) Insulin (Regular) Human (Humulin R (Per (09/10/19 11:30) Ns Iv 1000 Ml (Sodium Chloride 0.9%) (09/10/19 12:00) Medications Given in ED Current Medications Medications Dose Ordered Sig/Deandra Route Start Time Stop Time Status Last Admin Dose Admin Insulin Human Regular 10 unit ONCE ONCE IV 09/10/19 11:30 09/10/19 11:31 DC 09/10/19 11:30 10 UNIT Vital Signs/I&O 09/10/19 09:39 Temp 36.9 Pulse 106 Resp 18 B/P (MAP) 166/87 (113) O2 Delivery Room Air Blood Pressure Mean: 113 Progress Progress Note : Progress Note @1210 - patient and updated on lab results. The patient states she is feeling much better and is requesting that the IV be removed and that she be able to go home. She is not vomited once since arrival. While the patient does have some evidence of dehydration and ketones on her lab work I feel this is more a result of the dehydration then a suggestion of DKA. The patient's abdominal discomfort is also feeling much better. Advised the patient to continue drinking plenty of fluids at home and to check her sugar frequently. She was given 2 L of IV fluids as well as 10 units of IV insulin in the emergency department. She has no complaints at this time. Advise close follow-up with her PCP in the next 1-2 days and return to the Emergency Department immediately for new or worsening symptoms. Departure Impression Primary Impression: Vomiting and diarrhea Additional Impression: Dehydration Disposition: 01 HOME, SELF-CARE Condition: Stable Departure-Patient Inst. Decision time for Depature: 12:27 Referrals: ASHLEY RAIN MD (PCP/Family) Primary Care Physician Patient Instructions: Dehydration, Adult (DC), Diarrhea and Traveler's Diarrhea, Adult (DC), Nausea and Vomiting, Adult Add. Discharge Instructions: Follow-up with your doctor in the next 1-2 days. Take the prescribed medicine as directed. Return to the Emergency Department immediately for new or worsening symptoms. Drink plenty of fluids to stay well hydrated. WES BRYANT DO Sep 10, 2019 10:14
[2019-09-10 10:24] LABS: ALKALINE PHOSPHATASE 86 U/L (40-136); BILIRUBIN,TOTAL 0.7 MG/DL (0.1-1.0); BUN/CREATININE RATIO 32; CALCIUM 8.5 MG/DL (8.5-10.1); CARBON DIOXIDE 19 MMOL/L (21-32); CHLORIDE 100 MMOL/L (98-107); CREATININE SERUM 0.78 MG/DL (0.60-1.30); GFR ESTIMATED > 60; GLUCOSE 350 MG/DL (70-105); POTASSIUM 4.7 MMOL/L (3.6-5.0); SODIUM 136 MMOL/L (135-145)
[2019-09-10 10:25] LABS: ALANINE AMINOTRANSFERASE 28 U/L (0-55); BAND NEUTROPHILS 13 %; BASOPHILS % (MANUAL) 0 %; EOSINOPHILS % (MANUAL) 2 %; LIPASE 14 U/L (8-78); LYMPHOCYTES % (MANUAL) 9 %; METAMYELOCYTES % 1 %; MONOCYTES % (MANUAL) 3 %; NEUTROPHILS % (MANUAL) 72 %; RBC MORPH NORMAL; TOTAL PROTEIN 6.9 GM/DL (6.4-8.2)
[2019-09-10 10:58] LABS: CLARITY,URINE CLEAR; COLOR,URINE YELLOW; PH,URINE 5.5 (5-9)
[2019-09-10 10:59] LABS: BACTERIA,URINE MODERATE /HPF; BILIRUBIN,URINE NEGATIVE (NEGATIVE); GLUCOSE, URINE (UA) 3+ (NEGATIVE); KETONES,URINE 2+ (NEGATIVE); LEUKOCYTE ESTERASE ,URINE NEGATIVE (NEGATIVE); NITRITE,URINE NEGATIVE (NEGATIVE); PROTEIN,URINE 1+ (NEGATIVE)
[2019-09-10] MEDS ORDERED: inSUlin (REGULAR) HUMAN 1 UNIT/0.01 ML (CHARGE PER UNIT) IV ONE (11:30)
[2019-09-10 12:16] VITALS: BP 143/83
== END 2019-09-10 12:42 | disposition home or self-care (01) ==
LOC: EDUNIT# 09:18 → ER FS 09:20
DX: R11.2 Nausea with vomiting, unspecified (principal); R19.7 Diarrhea, unspecified; E86.0 Dehydration; E11.9 Type 2 diabetes mellitus without complications; Z88.6 Allergy status to analgesic agent; Z87.891 Personal history of nicotine dependence; Z79.4 Long term (current) use of insulin
CPT/HCPCS: 36415; 80053; 81000; 82962; 83690; 85007; 85027

== ENCOUNTER 2021-10-11 03:42 | Inpatient (IN) | payer SELFPAY ==
[~2021-10-11] VITALS: Ht 157.4 cm; Wt 90.0 kg
[2021-10-11] VITALS (19 sets, daily range): BP systolic 102–207; BP diastolic 62–111
[2021-10-11] MEDS ORDERED: LORazepam INJ 2 MG/ML (ATIVAN) VIAL IVP STA (04:00)
[2021-10-11] MEDS ORDERED: fentaNYL INJ 100 MCG/2 ML AMP IVP STA (04:00)
[2021-10-11] MEDS ORDERED: ONDANSETRON 4 MG/2 ML (SDV) Z0FRAN IVP STA (04:00)
[2021-10-11] MEDS ORDERED: NS IV 1000 ML 1,000 ML IV STA ×3 (04:00→06:27)
--- NOTE | 2021-10-11 04:08 | ED Chest Pain ---
General Stated Complaint: CHEST PAIN Source: patient, old records, spouse Exam Limitations: other (chest pain limiting her answering questions) History of Present Illness Date Seen by Provider: Oct 11, 2021 Time Seen by Provider: 03:43 Initial Comments 66 yo female presenting with complaints of left sided pain under left breast that is sharp in nature and started at 1700. She states the pain has continued to worsen overnight to the point that she finally came to the ED this am at 340 am[address] She [place] with Dr[address] [place] in [place]. She has not taken anythiing for the pain. She has a history of diabetes, high blood pressure, hypertension. She states that she has a history of atrial fibrillation but does not take any medicine for it and has not had irregular heartbeat for a while now. The pain is worse with deep breaths and movement. She denies any trauma or fall. She states she has not been running a fever. She has not been having a cough or congestion. She denies any history of blood clots or pain like this. She has been having dry heaves and cough. In the emergency department but states she has had a fundoplication so she cannot vomit. Timing/Duration: other (since 1700 last night) Severity/Quality: severe, sharp Radiation: no radiation Activities at Onset: none ASA po CHEESE WRAPPER: No NTG SL CHEESE WRAPPER: No Associated Symptoms: No abdominal pain, No back pain, No diaphoresis, No dizziness, No edema, No fatigue, No fever/chills, No headache, No heartburn; nausea/vomiting (dry heaves as she can not vomit due to jossue fundoplication); No rash; shortness of breath; No swelling/lump in chest, No syncope, No weakness Allergies and Home Medications Allergies Coded Allergies: NSAIDS (Non-Steroidal Anti-Inflamma (Verified Allergy, Unknown, 01/02/19) swelling aspirin (Verified Allergy, Unknown, 01/02/19) swelling Patient Home Medication List Home Medication List Reviewed: Yes Lisinopril (Lisinopril) 20 Mg Tablet, (Reported) Entered as Reported by: BERNADINE BURDEN on 10/11/21648 Last Action: New Order Metformin HCl (Metformin HCl) 1,000 Mg Tablet, (Reported) Entered as Reported by: BERNADINE BURDEN on 10/11/21648 Last Action: New Order Metoprolol Succinate (Metoprolol Succinate) 200 Mg Tab.er.24h, (Reported) Entered as Reported by: BERNADINE BURDEN on 10/11/21648 Last Action: New Order Tolterodine Tartrate (Tolterodine Tartrate ER) 2 Mg Cap.er.24h, (Reported) Entered as Reported by: BERNADINE BURDEN on 10/11/21648 Last Action: New Order Discontinued Medications Ondansetron (Ondansetron Odt) 4 Mg Tab.rapdis, 4 MG PO Q6H PRN for NAUSEA/VOMITING Discontinued Reason: Referral/FU Appt-Addtl Prescribed by: KEYON TELLEZ on 01/02/19 3985 Last Action: Discontinued Review of Systems Review of Systems Constitutional: chills (complained to last night of having chills); No fever EENTM: No Symptoms Reported Respiratory: See HPI Cardiovascular: See HPI Gastrointestinal: See HPI Genitourinary: Frequency, Incontinence Musculoskeletal: no symptoms reported Skin: No rash Psychiatric/Neurological: Anxiety Endocrine: Increased Urine Hematologic/Lymphatic: Denies Blood Clots Past Rjdkxji-Heczru-Zdxkmn Hx Patient Social History Tobacco Use?: No Smoking Status: Former Smoker Use of E-Cig and/or Vaping dev: No Substance use?: No Alcohol Use?: No Seasonal Allergies Seasonal Allergies: No Past Medical History Surgery/Hospitalization HX: NIDDM, HTN, Overactive bladder Surgeries: Yes (Breast reduction, Jossue Fundoplication,HERNIA) Breast, Hysterectomy Respiratory: No Cardiac: Yes 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 Neurological: No 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 0oz. 73.849928ng; 32.00 BMI Method:Stated General Appearance: Anxious, Obese, Severe Distress (moaning and crying out in pain), Other (appears older than stated age) HEENT: PERRL/EOMI, Pharynx Normal Neck: Full Range of Motion, Normal Inspection, Non Tender, Supple Respiratory: No Accessory Muscle Use, Decreased Breath Sounds, Respiratory Distress (tachypnea); No Rhonci, No Stridor, No Wheezing; Other (tender to palpation left lateral chest wall) Cardiovascular: Normal Peripheral Pulses, Tachycardia Gastrointestinal: Normal Bowel Sounds, No Pulsatile Mass, Soft; No Distended, No Guarding, No Rebound; Tenderness (LUQ and left lower ribs/ lateral chest wall) Rectal: Deferred Extremity: Normal Capillary Refill, Normal Inspection, Normal Range of Motion, No Pedal Edema Neurologic/Psychiatric: Alert, 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 takers 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 II-XII Norm as Tested, Disoriented Skin: Warm/Dry; No Rash Focused Exam Sepsis Stage: Sepsis Possible Source: Pulmonary Lactate Level 10/11/21 05:00: Lactic Acid Level 2.34*H Time of Focused Exam: 06:15 Respiratory: Decreased Breath Sounds, Respiratory Distress; No Rhonci, No Stridor, No Wheezing; Other (tender to palpation left lateral ribs) Cardiovascular: Normal Peripheral Pulses Capillary Refill: Less Than 3 Seconds Peripheral Pulses: 2+ Carotid (R), 2+ Carotid (L), 2+ Radial Pulses (R), 2+ Radial Pulses (L) Skin: normal color, warm/dry; No rash Lactic Acid Level Laboratory Tests Test 10/11/21 05:00 Lactic Acid Level 2.34 MMOL/L (0.50-2.00) *H Within 3hrs of presentation: Admin fluids, Admin ABX, Blood cultures prior to ABX's, Focus exam, Lactate level Critical Care Note Critical Care Total Time (minutes) 90 minutes Progress 90 minutes of critical care time was spent with the patient. Time excludes separately billable procedures. time was spent in obtaining history from the patient, medical records, , ordering test and reviewing results, ordering interventions and reviewing response, discussion with consultants, documentation of the chart. Patient was at risk of neurologic, cardiac, pulmonary, metabolic compromise. She required my constant direct interaction and attention to stabilize her condition. Progress/Results/Core Measures Results/Orders Lab Results Laboratory Tests Test 10/11/21 04:00 10/11/21 04:35 10/11/21 05:00 10/11/21 06:25 Range/Units White Blood Count 21.3 H 4.3-11.0 10^3/uL Red Blood Count 5.62 H 3.80-5.11 10^6/uL Hemoglobin 16.3 H 11.5-16.0 g/dL Hematocrit 48 35-52 % Mean Corpuscular Volume 85 80-99 fL Mean Corpuscular Hemoglobin 29 25-34 pg Mean Corpuscular Hemoglobin Concent 34 32-36 g/dL Red Cell Distribution Width 13.2 10.0-14.5 % Platelet Count 118 L 130-400 10^3/uL Mean Platelet Volume 10.7 9.0-12.2 fL Immature Granulocyte % (Auto) 1 % Neutrophils (%) (Auto) 75 42-75 % Lymphocytes (%) (Auto) 14 12-44 % Monocytes (%) (Auto) 9 0-12 % Eosinophils (%) (Auto) 0 0-10 % Basophils (%) (Auto) 0 0-10 % Neutrophils # (Auto) 16.0 H 1.8-7.8 10^3/uL Lymphocytes # (Auto) 3.0 1.0-4.0 10^3/uL Monocytes # (Auto) 1.9 H 0.0-1.0 10^3/uL Eosinophils # (Auto) 0.0 0.0-0.3 10^3/uL Basophils # (Auto) 0.1 0.0-0.1 10^3/uL Immature Granulocyte # (Auto) 0.2 H 0.0-0.1 10^3/uL Neutrophils % (Manual) 63 % Lymphocytes % (Manual) 16 % Monocytes % (Manual) 7 % Eosinophils % (Manual) 1 % Metamyelocytes % 1 % Band Neutrophils 11 % Reactive Lymphocytes 1 % Platelet Estimate NORMAL Clumped Platelets MODERATE Percent Immature Platelet Fraction 12.8 H 0.0-7.6 % Blood Morphology Comment NORMAL Prothrombin Time 13.9 12.2-14.7 SEC INR Comment 1.0 0.8-1.4 Activated Partial Thromboplast Time 44 H 24-35 SEC D-Dimer 0.89 H 0.00-0.49 UG/ML Sodium Level 131 L 135-145 MMOL/L Potassium Level 4.9 3.6-5.0 MMOL/L Chloride Level 94 L 98-107 MMOL/L Carbon Dioxide Level 20 L 21-32 MMOL/L Anion Gap 17 H 5-14 MMOL/L Blood Urea Nitrogen 14 7-18 MG/DL Creatinine 0.98 0.60-1.30 MG/DL Estimat Glomerular Filtration Rate 64 BUN/Creatinine Ratio 14 Glucose Level 300 H 70-105 MG/DL Calcium Level 9.7 8.5-10.1 MG/DL Corrected Calcium 9.5 8.5-10.1 MG/DL Magnesium Level 1.6 1.6-2.4 MG/DL Total Bilirubin 1.1 H 0.1-1.0 MG/DL Aspartate Amino Transf (AST/SGOT) 35 H 5-34 U/L Alanine Aminotransferase (ALT/SGPT) 21 0-55 U/L Alkaline Phosphatase 135 40-136 U/L Myoglobin 115.1 H 10.0-92.0 NG/ML Troponin I < 0.30 <0.30 NG/ML Pro-B-Type Natriuretic Peptide 897.5 H <75.0 PG/ML Total Protein 8.1 6.4-8.2 GM/DL Albumin 4.3 3.2-4.5 GM/DL Lipase 16 8-78 U/L Urine Color YELLOW Urine Clarity SL CLOUDY Urine pH 6.5 5-9 Urine Specific [place] 1.020 1.016-1.022 Urine Protein 2+ H NEGATIVE Urine Glucose (UA) 3+ H NEGATIVE Urine Ketones 1+ H NEGATIVE Urine Nitrite NEGATIVE NEGATIVE Urine Bilirubin NEGATIVE NEGATIVE Urine Urobilinogen 0.2 < = 1.0 MG/DL Urine Leukocyte Esterase NEGATIVE NEGATIVE Urine RBC (Auto) 1+ H NEGATIVE Urine RBC RARE /HPF Urine WBC 2-5 /HPF Urine Squamous Epithelial Cells RARE /HPF Urine Crystals PRESENT H /LPF Urine Amorphous Sediment FEW ABRAHAN PHOSPHATE H /LPF Urine Bacteria TRACE /HPF Urine Casts PRESENT /LPF Urine Hyaline Casts 0-2 H /LPF Urine Mucus MODERATE H /LPF Urine Culture Indicated NO Urine Opiates Screen NEGATIVE NEGATIVE Urine Oxycodone Screen NEGATIVE NEGATIVE Urine Methadone Screen NEGATIVE NEGATIVE Urine Propoxyphene Screen NEGATIVE NEGATIVE Urine Barbiturates Screen NEGATIVE NEGATIVE Ur Tricyclic Antidepressants Screen NEGATIVE NEGATIVE Urine Phencyclidine Screen NEGATIVE NEGATIVE Urine Amphetamines Screen NEGATIVE NEGATIVE Urine Methamphetamines Screen NEGATIVE NEGATIVE Urine Benzodiazepines Screen NEGATIVE NEGATIVE Urine Cocaine Screen NEGATIVE NEGATIVE Urine Cannabinoids Screen NEGATIVE NEGATIVE Lactic Acid Level 2.34 *H 0.50-2.00 MMOL/L Influenza Type A Antigen NEGATIVE NEGATIVE Influenza Type B Antigen NEGATIVE NEGATIVE My Orders Orders - SCAR COPELAND MD Cbc With Automated Diff (10/11/21 04:00) Magnesium (10/11/21 04:00) Chest 1 View Ap/Pa Only (10/11/21 04:00) Ekg Tracing (10/11/21 04:00) Comprehensive Metabolic Panel (10/11/21 04:00) Myoglobin Serum (10/11/21 04:00) Protime With Inr (10/11/21 04:00) Partial Thromboplastin Time (10/11/21 04:00) O2 (10/11/21 04:00) Monitor-Rhythm Ecg Trace Only (10/11/21 04:00) Ed Iv/Invasive Line Start (10/11/21 04:00) Lipase (10/11/21 04:00) Troponin I Fs (10/11/21 04:00) Probnp Fs (10/11/21 04:00) Ondansetron Injection (Zofran Injectio (10/11/21 04:00) Fentanyl Inj (Sublimaze Injection) (10/11/21 04:00) Ns Iv 1000 Ml (Sodium Chloride 0.9%) (10/11/21 04:00) Lorazepam Injection (Ativan Injection) (10/11/21 04:00) Fibrin Degradation Products (10/11/21 04:02) Nitroglycerin Ointment (Nitrobid Ointme (10/11/21 04:48) Metoprolol Tartrate Injection (Lopressor (10/11/21 04:48) Ua Culture If Indicated (10/11/21 04:49) Drug Screen Stat (Urine) (10/11/21 04:49) Ct Head Wo (10/11/21 04:49) Ct Angio Chest/Abd/Pelv W (10/11/21 04:49) Blood Culture (10/11/21 04:49) Lactic Acid Analyzer (10/11/21 04:49) Ns Iv 1000 Ml (Sodium Chloride 0.9%) (10/11/21 04:49) Manual Differential (10/11/21 04:00) Iohexol Injection (Omnipaque 350 Mg/Ml 1 (10/11/21 05:00) Received Contrast (Hold Metformin- Contr (10/11/21 05:00) Sodium Chloride Flush (Catheter Flush Sy (10/11/21 05:00) Ns (Ivpb) (Sodium Chloride 0.9% Ivpb Bag (10/11/21 05:00) Ceftriaxone 1 Gm Pre-Mix (Rocephin 1 Gm (10/11/21 05:57) Betts Cath (10/11/21 06:26) Influenza A & B Antigens (10/11/21 06:26) Covid 19 Inhouse Test (10/11/21 06:26) Isolation Central Supply Req (10/11/21 06:26) Azithromycin Injection (Zithromax Inject (10/11/21 06:27) Ns Iv 1000 Ml (Sodium Chloride 0.9%) (10/11/21 06:27) Medications Given in ED Current Medications Medications Dose Ordered Sig/Deandra Route Start Time Stop Time Status Last Admin Dose Admin Iohexol 150 ml ONCE ONCE IV 10/11/21 05:00 10/11/21 05:01 DC 10/11/21 05:55 125 ML Sodium Chloride 10 ml NEEDED PRN IV 10/11/21 05:00 10/11/21 05:55 10 ML Sodium Chloride 100 ml ONCE ONCE IV 10/11/21 05:00 10/11/21 05:01 DC 10/11/21 05:55 100 ML Vital Signs/I&O 10/11/21 04:00 Pulse Ox 90 O2 Delivery Nasal Cannula O2 Flow Rate 4.00 Progress Progress Note #1: Progress Note Obtain electrocardiogram to evaluate her tachycardia and left-sided chest pain since 5 PM. Chest x-ray to look for signs of pneumonia or infection or pleural effusion or mass. Urine to look for signs of infection. Check labs and electrolytes looking for cardiac illness or electrolyte abnormality or pancreatitis or acute coronary syndrome to cause her symptoms. Try giving IV fluids 1 L normal saline bolus for hydration, fentanyl 50 mcg for pain, Ativan 1 mg IV for anxiety and muscle spasm/chest wall, zofran 4 mg IV for nausea. Progress Note #2: Time: 04:44 Progress Note Patient continues to be anxious and intermittently moaning. She did have a brief period where she was more relaxed after medications. She has no definite infiltrate on her chest x-ray. Her electrocardiogram shows sinus tachycardia without ST elevation. She has had to urinate small amounts several times. When finally able to get some history from her she reports that when he got home from work last night that she complained of being chilled and wanted to take a hot bath. Then she was too weak to get out of the bath. She has been confused and not acting right since he had gotten home last night. They are watching their grandchildren and he finally brought her to the emergency department to get her evaluated. Progress Note #3: Time: 05:09 Progress Note Her white blood cell count is elevated to 21.3 thousand with a left shift and bands. She has elevated D-dimer as well. Ordered a CT scan of her head without contrast to evaluate for her altered mental status and confusion. CT angiogram of her chest abdomen and pelvis with her complaining of left-sided chest pain as well as having some nausea and dry heaves. Due to her urinary frequency a Betts catheter was placed so that she was not having to get up to the commode since she was tachycardic and hypertensive. Additional IV fluids were ordered since she continued to be tachycardic. For her continued left-sided chest pain nitroglycerin 1 inch was ordered as well as a single 5 mg of metoprolol to try and help with blood pressure and tachycardia. Progress Note #4: Time: 05:36 Progress Note Chemistry panel shows elevated glucose of 300. She has sodium 131. Her anion gap is slightly high at 17. Her renal function was okay. She had troponin less than 0.3. Her proBNP was 897.5. She had mild elevation of her myoglobin to 115. Will go ahead and obtain CT angiogram of chest abdomen and pelvis to evaluate her aorta and look for PE since she was having pleuritic left chest pain and elevated D-dimer. Progress Note #5: Time: 06:18 Progress Note With patient having elevated lactic acid of 2.34 will order antibiotics to cover for community-acquired pneumonia. Her CT head did not show any acute process. Her CT angiogram of the chest abdomen and pelvis on my review appeared to have left lower lobe infiltrate. When discussing results with the he requested to try and go to [facility] if possible since her primary care is Dr. Rain. If [facility] does not have any beds then he was okay with the patient going to [facility]. He stated that the patient was a full code as they had not ever discussed any advanced directives but as far as he knew she would want everything done. [id number] ROSSI Howard, Nursing refractory products supervisor at [facility] stated that they did not have any beds available at all for transfer at 06. When I spoke with Cristin at the nursing refractory products supervisor at [facility] she stated that they do have an ICU bed. 6:40 AM I spoke with Dr. Brody on-call for the hospitalist service and he accepted the patient for admission for Dr. Thorne. Will admit to the ICU and use the sepsis order set for pneumonia and sliding scale insulin since the was unsure of what insulin she uses. Initial ECG Impression Date: Oct 11, 2021 Initial ECG Impression Time: 03:49 Initial ECG Rate: 129 Initial ECG Rhythm: S.Tach Initial ECG Comparisson: Changed (Previous tracing was sinus rhythm in 2019) Comment Sinus tachycardia with heart rate of 129 bpm. OK interval 144 ms. Borderline T wave abnormalities in the inferior leads II, 3, aVF. QT interval 327 ms with a QTc interval 480 ms. There is no acute ST elevation. Overall appears similar to tracing from 2019 except now she is tachycardic. Diagnostic Imaging Diagonstic Imaging: Xray Plain Films/CT/US/NM/MRI: chest Comments On my review of the single view chest x-ray I did not see any definite infiltrate but she had poor inspiration and large body habitus Reviewed: Reviewed by Me Diagonstic Imaging: CT (Angiogram) Plain Films/CT/US/NM/MRI: chest, abdomen, pelvis Comments NAME: ASHLEY TYSON [facility] REC#: [id number] PT STATUS: REG ER : 1955 PHYSICIAN: SCAR COPELAND MD ADMIT DATE: 10/11/21/ER FS Draft Date of Exam:10/11/21 CT ANGIO CHEST/ABD/PELV W PROCEDURE: CT angiography of the chest with contrast and CT abdomen and pelvis with contrast. TECHNIQUE: Multiple contiguous axial images were obtained through the chest, abdomen and pelvis after administration of intravenous contrast. 3D MIP reconstructed CT angiography acquisitions of the aorta were then performed. Auto Exposure Controls were utilized during the CT exam to meet ALARA standards for radiation dose reduction. INDICATION: Left chest pain. Left upper quadrant abdominal pain. 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. COMPARISON: CTA chest 01/02/2019. FINDINGS: CTA CHEST: No pulmonary artery filling defects. Normal caliber thoracic aorta. Normal heart size. No pericardial effusion. No lymphadenopathy. Dense consolidation in the left lower lobe consistent with pneumonitis. No pleural effusion or pneumothorax. No acute osseous findings. CT abdomen and pelvis: Cholecystectomy. Nodular contour of the liver. Mild splenomegaly. The spleen, adrenals, kidneys and collecting systems are negative. Hysterectomy. Urinary bladder is decompressed by a Betts catheter. Normal appendix. No free intraperitoneal air or fluid. No lymphadenopathy. No evidence of bowel obstruction. No acute osseous findings. IMPRESSION: 1. No pulmonary emboli. 2. Large region of dense consolidation left lower lobe most consistent with pneumonitis. Recommend follow-up to resolution. 3. Cirrhotic nodular contour of the liver. Mild splenomegaly. Dictated on workstation # [id number] Dict: 10/11/21 0609 Trans: 10/11/21618 GISELLE [id number] Interpreted by: MORGAN DE LA ROSA MD Electronically signed by: Diagonstic Imaging: CT Plain Films/CT/US/NM/MRI: head Comments NAME: ASHLEY TYSON [facility] REC#: [id number] PT STATUS: REG ER : 1955 PHYSICIAN: SCAR COPELAND MD ADMIT DATE: 10/11/21/ER FS Draft Date of Exam:10/11/21 CT HEAD WO PROCEDURE: CT head without contrast. TECHNIQUE: Multiple contiguous axial images were obtained through the brain without the use of intravenous contrast. Auto Exposure Controls were utilized during the CT exam to meet ALARA standards for radiation dose reduction. INDICATION: Altered mental status. COMPARISON: None. FINDINGS: Moderate generalized parenchymal volume loss and chronic small vessel ischemic change. No CT evidence of territorial infarction. No intracranial hemorrhage, mass effect, hydrocephalus or extra-axial fluid collections. Osseous structures are intact. Visualized paranasal sinuses and mastoids are unremarkable. IMPRESSION: No acute intracranial CT findings. Dictated on workstation # [id number] Dict: 10/11/21 06 Trans: 10/11/21602 [id number] Interpreted by: MORGAN DE LA ROSA MD Electronically signed by: Reviewed: Reviewed by Id Departure Communication (Admissions) Time/Spoke to Admitting Phy: 06:[address] Brody for the hospitalist service and he accepted patient on behalf of Dr. Benjamin. Will admit for his sepsis with pneumonia and use a sepsis order set. For her diabetes we will use sliding scale insulin set. Continue with IV fluids and will order dose of insulin here in the ED. Admit to the ICU at [facility] Impression Primary Impression: Sepsis Qualified Codes: A41.9 - Sepsis, unspecified organism Additional Impressions: Encephalopathy acute Pleuritic chest pain Pneumonia of left lower lobe due to infectious organism 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 Qualified Codes: I10 - Essential (primary) hypertension Disposition: 30 STILL A PATIENT Condition: Critical Admissions Decision to Admit Reason: Admit from ER (General) Decision to Admit/Date: Oct 11, 2021 Time/Decision to Admit Time: 06:40 Departure-Patient Inst. Referrals: ASHLEY RAIN MD (PCP/Family) Primary Care Physician SCAR COPELAND MD Oct 11, 2021 04:08
[2021-10-11 04:42] LABS: PROTHROMBIN TIME PATIENT 13.9 SEC (12.2-14.7)
[2021-10-11 04:44] LABS: BASOPHILS # (AUTO) 0.1 10^3/uL (0.0-0.1); BASOPHILS % (AUTO) 0 % (0-10); EOSINOPHILS % (AUTO) 0 % (0-10); HEMATOCRIT 48 % (35-52); HEMOGLOBIN 16.3 g/dL (11.5-16.0); LYMPHOCYTES % (AUTO) 14 % (12-44); MEAN CORPUSCULAR HEMOGLOBIN 29 pg (25-34); MEAN CORPUSCULAR HGB CONC 34 g/dL (32-36); MEAN CORPUSCULAR VOLUME 85 fL (80-99); MEAN PLATELET VOLUME 10.7 fL (9.0-12.2); MONOCYTES # (AUTO) 1.9 10^3/uL (0.0-1.0); MONOCYTES % (AUTO) 9 % (0-12); NEUTROPHILS % (AUTO) 75 % (42-75); WHITE BLOOD COUNT 21.3 10^3/uL (4.3-11.0)
[2021-10-11] MEDS ORDERED: meTOprolol 5 MG/5 ML (LOPRESSOR) VIAL IV STA (04:48)
[2021-10-11] MEDS ORDERED: NITROGLYCERIN 2% OINT 1 GM UNIT DOSE PACKET TOP STA (04:48)
[2021-10-11 04:49] LABS: FIBRIN DEGRADATION PRODUCTS 0.89 UG/ML (0.00-0.49)
[2021-10-11 04:52] LABS: PLATELET COUNT 118 10^3/uL (130-400)
[2021-10-11 04:56] LABS: BAND NEUTROPHILS 11 %; EOSINOPHILS % (MANUAL) 1 %; LYMPHOCYTES % (MANUAL) 16 %; METAMYELOCYTES % 1 %; MONOCYTES % (MANUAL) 7 %; NEUTROPHILS % (MANUAL) 63 %; PLATELET ESTIMATE NORMAL; RBC MORPH NORMAL; REACTIVE LYMPHOCYTES 1 %
[2021-10-11 04:57] LABS: PLATELET CLUMPS MODERATE
[2021-10-11] MEDS ORDERED: CATHETER FLUSH 10 ML SYR IV PRN (05:00)
[2021-10-11] MEDS ORDERED: HOLD METFORMIN - RECEIVED CONTRAST 20 ML VIAL IV SCH (05:00)
[2021-10-11] MEDS ORDERED: IOHEXOL 350 MG/ML 150 ML (OMNIPAQUE 350) VIAL IV ONE (05:00)
[2021-10-11] MEDS ORDERED: NS 100 ML (IVPB) BAG IV ONE (05:00)
[2021-10-11 05:07] LABS: BILIRUBIN,URINE NEGATIVE (NEGATIVE); CLARITY,URINE SL CLOUDY; COLOR,URINE YELLOW; GLUCOSE, URINE (UA) 3+ (NEGATIVE); KETONES,URINE 1+ (NEGATIVE); LEUKOCYTE ESTERASE ,URINE NEGATIVE (NEGATIVE); NITRITE,URINE NEGATIVE (NEGATIVE); PH,URINE 6.5 (5-9); PROTEIN,URINE 2+ (NEGATIVE)
[2021-10-11 05:14] LABS: BACTERIA,URINE TRACE /HPF; RBC,URINE RARE /HPF; SQUAMOUS EPITHELIAL CELL,UR RARE /HPF
[2021-10-11 05:15] LABS: AMORPHOUS SEDIMENT,UR FEW AMOR PHOSPHATE /LPF; HYALINE CASTS, URINE 0-2 /LPF
[2021-10-11 05:24] LABS: POTASSIUM 4.9 MMOL/L (3.6-5.0)
[2021-10-11 05:25] LABS: BILIRUBIN,TOTAL 1.1 MG/DL (0.1-1.0); CALCIUM 9.7 MG/DL (8.5-10.1); CREATININE SERUM 0.98 MG/DL (0.60-1.30); MAGNESIUM 1.6 MG/DL (1.6-2.4); TOTAL PROTEIN 8.1 GM/DL (6.4-8.2)
[2021-10-11 05:26] LABS: ALBUMIN 4.3 GM/DL (3.2-4.5)
[2021-10-11 05:29] LABS: AMPHETAMINE SCREEN, URINE NEGATIVE (NEGATIVE); BARBITURATE SCREEN URINE NEGATIVE (NEGATIVE); BENZODIAZEPINES SCREEN URINE NEGATIVE (NEGATIVE); CANNABINOID SCREEN, URINE NEGATIVE (NEGATIVE); COCAINE SCREEN URINE NEGATIVE (NEGATIVE); METHADONE STAT NEGATIVE (NEGATIVE); METHAMPHETAMINE SCREEN URINE S NEGATIVE (NEGATIVE); OPIATE SCREEN URINE NEGATIVE (NEGATIVE); OXYCODONE STAT NEGATIVE (NEGATIVE); PROPOXYPHENE STAT NEGATIVE (NEGATIVE); TRICYCLIC ANTIDEPRESSANTS SCRE NEGATIVE (NEGATIVE)
[2021-10-11] MEDS ORDERED: cefTRIAXone 1 GM PRE-MIX 50 ML IV STA (05:57)
--- NOTE | 2021-10-11 06:03 | Diagnostic Imaging Report ---
PROCEDURE: CT head without contrast. TECHNIQUE: Multiple contiguous axial images were obtained through the brain without the use of intravenous contrast. Auto Exposure Controls were utilized during the CT exam to meet ALARA standards for radiation dose reduction. INDICATION: Altered mental status. COMPARISON: None. FINDINGS: Moderate generalized parenchymal volume loss and chronic small vessel ischemic change. No CT evidence of territorial infarction. No intracranial hemorrhage, mass effect, hydrocephalus or extra-axial fluid collections. Osseous structures are intact. Visualized paranasal sinuses and mastoids are unremarkable. IMPRESSION: No acute intracranial CT findings. Dictated by: Dictated on workstation # [id number]
--- NOTE | 2021-10-11 06:20 | Diagnostic Imaging Report ---
PROCEDURE: CT angiography of the chest with contrast and CT abdomen and pelvis with contrast. TECHNIQUE: Multiple contiguous axial images were obtained through the chest, abdomen and pelvis after administration of intravenous contrast. 3D MIP reconstructed CT angiography acquisitions of the aorta were then performed. Auto Exposure Controls were utilized during the CT exam to meet ALARA standards for radiation dose reduction. INDICATION: Left chest pain. Left upper quadrant abdominal pain. 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. COMPARISON: CTA chest 01/02/2019. FINDINGS: CTA CHEST: No pulmonary artery filling defects. Normal caliber thoracic aorta. Normal heart size. No pericardial effusion. No lymphadenopathy. Dense consolidation in the left lower lobe consistent with pneumonitis. No pleural effusion or pneumothorax. No acute osseous findings. CT abdomen and pelvis: Cholecystectomy. Nodular contour of the liver. Mild splenomegaly. The spleen, adrenals, kidneys and collecting systems are negative. Hysterectomy. Urinary bladder is decompressed by a Betts catheter. Normal appendix. No free intraperitoneal air or fluid. No lymphadenopathy. No evidence of bowel obstruction. No acute osseous findings. IMPRESSION: 1. No pulmonary emboli. 2. Large region of dense consolidation left lower lobe most consistent with pneumonitis. Recommend follow-up to resolution. 3. Cirrhotic nodular contour of the liver. Mild splenomegaly. Dictated by: Dictated on workstation # [id number]
[2021-10-11] MEDS ORDERED: AZITHROMYCIN INJECTION 500 MG in NS (IVPB) 250 ML IV STA (06:27)
--- NOTE | 2021-10-11 06:43 | Diagnostic Imaging Report ---
Indication: Chest pain Comparison: 01/02/2019 Findings: Single view of the chest demonstrates clear lungs bilaterally. The heart is normal. There is no pneumothorax. Osseous structures normal. Impression: Negative chest Dictated by: Dictated on workstation # [id number]
[2021-10-11] MEDS ORDERED: TOLT2CAP21 PO (06:49)
[2021-10-11] MEDS ORDERED: METO200T48 PO (06:49)
[2021-10-11] MEDS ORDERED: LISI20TA26 PO (06:49)
[2021-10-11] MEDS ORDERED: METF-399 PO (06:49)
[2021-10-11] MEDS: hydrALAZINE (APESOLINE) 20 MG/ML VIAL IV PRN (08:59)
[2021-10-11] MEDS ORDERED: PANTOPRAZOLE 40 MG (PROTONIX) VIAL IV ONE (09:15)
[2021-10-11] MEDS ORDERED: ENOXAPARIN 40 MG/0.4 ML (LOVENOX) SYR SC SCH (09:15)
[2021-10-11] MEDS ORDERED: CATHETER FLUSH 10 ML SYR IVP PRN (09:15)
[2021-10-11] MEDS ORDERED: EPINEPHrine 1 MG INJECTION 4 MG in NS (IVPB) 248 ML IV SCH (09:15)
[2021-10-11] MEDS ORDERED: meTOprolol 5 MG/5 ML (LOPRESSOR) VIAL ONE (09:24)
[2021-10-11] MEDS: meTOprolol 5 MG/5 ML (LOPRESSOR) VIAL IV SCH ×2 (09:26→17:26)
[2021-10-11] MEDS: NOREPINEPHRINE 8 MG/250 ML 250 ML IV SCH (09:30)
[2021-10-11] MEDS: VASOPRESSIN INJECTION 20 UNIT in NS (IVPB) 100 ML IV SCH ×2 (09:31→20:25)
[2021-10-11] MEDS: NS IV 1000 ML 1,000 ML IV SCH (09:59)
--- NOTE | 2021-10-11 10:24 | Tele-ICU Consult ---
History of Present Illness History of Present Illness Date Seen by Provider: Oct 11, 2021 Time Seen by Provider: 10:24 Date of Admission (Tele-ICU Physician , consultation) Available chart/ vitals / labs / Images reviewed H&P is from ER notes Patient's information available about PMH, Shx, Fhx allergy reviewed in EMR. ROS as per chart and RN report Now in ICU, hemodynamically stable , tachycardic Video assessment done using teleICU camera, rest of exam as per RN Discussed with RN. Consultants: Hospital course: (10/11) 66 Y admitted with sepsis pneumonia, HTN, AMS, CP, CTA - no PE A/P LL PNA ( CTA - no PE 10/11 - cover for CAP z max and ceftriaxone 10/11--> - follow cx - LLL infiltrate is dence , but relatively small - 5 cm , follow close for resolution . ANS change - CTH 10/11 nigative - low suspicios for bungal infection from lungs given immunocompetent host - follow closelu - await PCP eval and exam - ? ? 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 Discussed with RN to reach out if any questions or concerns A total of minutes of critical care time was devoted to this patient today, required to treat and/or prevent further deterioration of critical care condition ( as above ) . Allergies and Home Medications Allergies Coded Allergies: NSAIDS (Non-Steroidal Anti-Inflamma (Verified Allergy, Unknown, 01/02/19) swelling aspirin (Verified Allergy, Unknown, 01/02/19) swelling Past Medical/Social/Family Hx Patient Social History Tobacco Use?: No Smoking Status: Former Smoker Use of E-Cig and/or Vaping dev: No Substance use?: No Alcohol Use?: No Pt stated abuse/neglect: No Immunizations Up To Date First/Initial COVID19 Vaccinat: Date unknown Second COVID19 Vaccination Joseph: Date unknown Current Status Advance Directives: No Communicates: Verbally Primary Language: Togolese Preferred Spoken Language: Togolese Is interpretation needed?: No Sensory deficits: Vision impairment Review of Systems Constitutional: see HPI Focused Exam Lactate Level 3/22/22 05:00: Lactic Acid Level 2.34*H 10/11/21 09:32: Lactic Acid Level 1.48 Height, Weight, BMI Height: 5'2.00" Weight: 163lbs. 0oz. 73.814126ig; 32.00 BMI Method:Stated Time of Focused Exam: 06:15 Lactic Acid Level Laboratory Tests Test 10/11/21 09:32 Lactic Acid Level 1.48 MMOL/L (0.50-2.00) Exam Exam Patient acknowledged, consented, and participated in this virtual visit which was conducted using real time audio/video Vital Signs Date Time Temp Pulse Resp B/P (MAP) Pulse Ox O2 Delivery O2 Flow Rate FiO2 10/11/21 09:31 115 10/11/21 09:30 116 10/11/21 07:25 38.6 133 24 173/96 95 Nasal Cannula 2.00 10/11/21 04:00 90 Nasal Cannula 4.00 10/11/21 03:45 37.0 130 22 188/104 (132) 95 Room Air I & O 10/11/21 07:00 Intake Total 2050 ml Balance 2050 ml Height & Weight Height: 5'2.00" Weight: 163lbs. 0oz. 73.171585dh; 32.00 BMI Method:Stated General Appearance: No Apparent Distress, Anxious, Obese, Severe Distress ( moaning and crying out in pain), Other (appears older than stated age) HEENT: PERRL/EOMI, Pharynx Normal Neck: Full Range of Motion, Normal Inspection, Non Tender, Supple Respiratory: Decreased Breath Sounds, Respiratory Distress; No Rhonci, No Stridor, No Wheezing; Other (tender to palpation left lateral ribs) Cardiovascular: Normal Peripheral Pulses Capillary Refill: Less Than 3 Seconds Peripheral Pulses: 2+ Carotid (R), 2+ Carotid (L), 2+ Radial Pulses (R), 2+ Radial Pulses (L) Extremity: Normal Capillary Refill, Normal Inspection, Normal Range of Motion, No Pedal Edema Neurologic/Psychiatric: Alert, radiation therapist II-XII Norm as Tested, Disoriented Skin: Warm/Dry; No Rash Results Lab Laboratory Tests 10/11/21 04:00 Assessment/Plan Assessment/Plan . KARENA CALZADA MD Oct 11, 2021 10:24
--- NOTE | 2021-10-11 10:26 | History & Physical-Hospitalist ---
History of Present Illness HPI/Chief Complaint Patient is 66-year-old female with past medical history of hypertension, wny-oqwzprv-hwfssrjrq diabetes type 2 who presented to the emergency department due to fever and confusion. I saw her in the ICU and she is quite altered and mostly just mumbles. I called and spoke with her who provided the history. He states that she was in her normal state of health yesterday morning when he went to work and when he got home around 5 or 530 she told him that she had been freezing all day and was going to take a hot bath. After the bath she was so weak she could not get out of the bathtub which is very abnormal for her. He checked her blood sugar and it was elevated at 270 which is again abnormal for her. 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 She was only able to complain of left breast pain to him. This continued to worsen throughout the night prompting him to seek care in the emergency room. CT of her chest revealed a left lower lobe pneumonia and she was admitted to the ICU for severe sepsis. Source: patient, family Date Seen 10/11/21 Time Seen by a Provider: 10:21 Attending Physician Etelvina Benjamin MD PCP Hitesh Brown MD Referring Physician Date of Admission Oct 11, 2021 at 08:27 Home Medications & Allergies Home Medications Reviewed patient Home Medication Reconciliation performed by pharmacy medication reconciliations orthotic and prosthetic technician and/or nursing. Patients Allergies have been reviewed. Allergies Allergies Coded Allergies NSAIDS (Non-Steroidal Anti-Inflamma (Verified Allergy, Unknown, 01/02/19) swelling aspirin (Verified Allergy, Unknown, 01/02/19) swelling Past Wqxnvgj-Aqpbiw-Zmntde Hx Patient Social History Marrital Status: Employed/Student: employed Tobacco Use?: No Smoking Status: Former Smoker Use of E-Cig and/or Vaping dev: No Substance use?: No Alcohol Use?: No Pt feels they are or have been: No Immunizations Up To Date First/Initial COVID19 Vaccinat: Date unknown Second COVID19 Vaccination Joseph: Date unknown Seasonal Allergies Seasonal Allergies: No Current Status Advance Directives: No Communicates: Verbally Primary Language: Prydeinig Preferred Spoken Language: Prydeinig Is interpretation needed?: No Sensory deficits: Vision impairment Past Medical History Surgeries: Breast, Hysterectomy 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: Hysterectomy Hiatal Hernia Arthritis, Back Injury, Chronic Back Pain Diabetes, Insulin dep Glaucoma Blood Disorders: No Family Medical History Reviewed Nursing Family Hx No Pertinent Family Hx Review of Systems ROS-Unable to Obtain: limited by AMS Constitutional: see HPI, chills, fever, weakness EENTM: no symptoms reported Respiratory: cough; No short of breath Physical Exam Physical Exam Vital Signs Vital Signs - First Documented 10/11/21 10/11/21 03:45 04:00 Temp 37.0 Pulse 130 Resp 22 B/P (MAP) 188/104 (132) Pulse Ox 95 O2 Delivery Room Air O2 Flow Rate 4.00 Capillary Refill : Less Than 3 Seconds Height, Weight, BMI Height: 5'2.00" Weight: 163lbs. 0oz. 73.337324tt; 32.00 BMI Method:Stated General Appearance: Mild Distress, Obese HEENT: PERRL/EOMI, Moist Mucous Membranes; No Scleral Icterus (L), No Scleral Icterus (R) Neck: Normal Inspection, Supple Respiratory: Lungs Clear, No Accessory Muscle Use, No Respiratory Distress Cardiovascular: Regular Rate, Rhythm, No JVD, No Murmur Gastrointestinal: Normal Bowel Sounds, Non Tender, Soft Extremity: Normal Capillary Refill, No Calf Tenderness, No Pedal Edema Neurologic/Psychiatric: Alert; No Facial Droop; Other (drowsy with slowed mentation, mumbling) Skin: Normal Color, Warm/Dry Results Results/Procedures Labs Laboratory Tests 10/11/21 04:00 10/12/21 04:10 Patient resulted labs reviewed. Imaging: Reviewed Imaging Report Imaging [facility], [place] NAME: ASHLEY TYSON [facility] REC#: [id number] PT STATUS: ADM IN : 1955 PHYSICIAN: SCAR COPELAND MD ADMIT DATE: 10/11/21/ICU Signed Date of Exam:10/11/21 CHEST 1 VIEW AP/PA ONLY Indication: Chest pain Comparison: 01/02/2019 Findings: Single view of the chest demonstrates clear lungs bilaterally. The heart is normal. There is no pneumothorax. Osseous structures normal. Impression: Negative chest Dictated by: Dictated on workstation # [id number] Dict: 10/11/21 0639 Trans: 10/11/21 0949 CVB [id number] Interpreted by: SERENA DICKERSON Electronically signed by: SERENA DICKERSON 10/11/21 0949 [facility] [place] [place] NAME: ASHLEY TYSON [facility] REC#: [id number] PT STATUS: ADM IN : 1955 PHYSICIAN: SCAR COPELAND MD ADMIT DATE: 10/11/21/ICU Signed Date of Exam:10/11/21 CT ANGIO CHEST/ABD/PELV W PROCEDURE: CT angiography of the chest with contrast and CT abdomen and pelvis with contrast. TECHNIQUE: Multiple contiguous axial images were obtained through the chest, abdomen and pelvis after administration of intravenous contrast. 3D MIP reconstructed CT angiography acquisitions of the aorta were then performed. Auto Exposure Controls were utilized during the CT exam to meet ALARA standards for radiation dose reduction. INDICATION: Left chest pain. Left upper quadrant abdominal pain. 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. COMPARISON: CTA chest 01/02/2019. FINDINGS: CTA CHEST: No pulmonary artery filling defects. Normal caliber thoracic aorta. Normal heart size. No pericardial effusion. No lymphadenopathy. Dense consolidation in the left lower lobe consistent with pneumonitis. No pleural effusion or pneumothorax. No acute osseous findings. CT abdomen and pelvis: Cholecystectomy. Nodular contour of the liver. Mild splenomegaly. The spleen, adrenals, kidneys and collecting systems are negative. Hysterectomy. Urinary bladder is decompressed by a Betts catheter. Normal appendix. No free intraperitoneal air or fluid. No lymphadenopathy. No evidence of bowel obstruction. No acute osseous findings. IMPRESSION: 1. No pulmonary emboli. 2. Large region of dense consolidation left lower lobe most consistent with pneumonitis. Recommend follow-up to resolution. 3. Cirrhotic nodular contour of the liver. Mild splenomegaly. Dictated by: Dictated on workstation # [id number] Dict: 10/11/21 0609 Trans: 10/11/21 1141 GISELLE [id number] Interpreted by: MORGAN DE LA ROSA MD Electronically signed by: MORGAN DE LA ROSA MD 10/11/21 1141 [facility] [place] [place] NAME: ASHLEY TYSON [facility] REC#: [id number] PT STATUS: ADM IN : 1955 PHYSICIAN: SCAR COPELAND MD ADMIT DATE: 10/11/21/ICU Signed Date of Exam:10/11/21 CT HEAD WO PROCEDURE: CT head without contrast. TECHNIQUE: Multiple contiguous axial images were obtained through the brain without the use of intravenous contrast. Auto Exposure Controls were utilized during the CT exam to meet ALARA standards for radiation dose reduction. INDICATION: Altered mental status. COMPARISON: None. FINDINGS: Moderate generalized parenchymal volume loss and chronic small vessel ischemic change. No CT evidence of territorial infarction. No intracranial hemorrhage, mass effect, hydrocephalus or extra-axial fluid collections. Osseous structures are intact. Visualized paranasal sinuses and mastoids are unremarkable. IMPRESSION: No acute intracranial CT findings. Dictated by: Dictated on workstation # [id number] Dict: 10/11/21 0600 Trans: 10/11/21 1141 [id number] Interpreted by: MORGAN DE LA ROSA MD Electronically signed by: MORGAN DE LA ROSA MD 10/11/21 1141 Assessment/Plan Admission Diagnosis Severe Sepsis Admission Status: Inpatient Order (span 2 midnights) Reason for Inpatient Admission: see below Assessment and Plan Severe Sepsis CAP Metabolic encephalopathy Tachycardiac with leukocytosis and lactic acidosis CT chest revealed LLL consolidation Await cultures Discussed with TeleICU and will ordered LP Expand abx coverage to include meningitis coverage HTN BP very elevated on arrival Continue Metoprolol IV to replace home metoprolol Hydralzine prn NIDDMII SSI only as on metformin DVT ppx: Lovenox Diagnosis/Problems Diagnosis/Problems (1) Severe sepsis Status: Acute (2) CAP (community acquired pneumonia) Qualifiers: Laterality: left Lung location: lower lobe of lung Qualified Codes: J18.9 - Pneumonia, unspecified organism (3) Non-insulin dependent type 2 diabetes mellitus Status: Chronic (4) Encephalopathy acute Status: Acute (5) 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 Status: Acute Qualifiers: 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 type: unspecified Qualified Codes: I10 - Essential (primary) hypertension (6) Pneumonia of left lower lobe due to infectious organism Status: Acute Clinical Quality Measures AMI/AHF: ASA po Prior to arrival: ETELVINA Warren MD Oct 11, 2021 10:26
[2021-10-11] MEDS ORDERED: ACETAMINOPHEN 325 MG SUPP (TYLENOL) PR PRN (11:15)
[2021-10-11] MEDS: inSUlin ASPART (NovoLOG) 1 UNIT/0.01 ML (CHARGE PER UNIT) SC SCH ×3 (11:53→21:20)
[2021-10-11] MEDS ORDERED: VANCOMYCIN INJECTION 0.1 MG in NS (IVPB) 250 ML IV SCH (12:30)
[2021-10-11] MEDS ORDERED: AMPICILLIN FOR IV USE 1,000 MG in WATER (STERILE) FOR INJECTION 7.4 ML IV SCH (12:30)
[2021-10-11] MEDS ORDERED: cefTRIAXone 1 GM PRE-MIX 50 ML IV NR (12:30)
[2021-10-11] MEDS ORDERED: VANCOMYCIN 1500 MG/NS 500 ML IVPB IV NR ×2 (13:00)
[2021-10-11] MEDS: AMPICILLIN 1,000 MG/NS 50 ML IVPB IV SCH ×6 (13:38→20:25)
[2021-10-11] MEDS ORDERED: INSN1U SQ (15:11)
[2021-10-11] MEDS ORDERED: DIPH25TA26 PO (15:11)
[2021-10-11] MEDS: ONDANSETRON 4 MG/2 ML (SDV) Z0FRAN IVP PRN (16:46)
[2021-10-11] MEDS ORDERED: LACTATED RINGERS 1,000 ML IV SCH (22:00)
[2021-10-12] VITALS (24 sets, daily range): BP systolic 139–180; BP diastolic 62–98
[2021-10-12] MEDS: meTOprolol 5 MG/5 ML (LOPRESSOR) VIAL IV SCH ×2 (00:51→05:33)
[2021-10-12] MEDS: cefTRIAXone 2,000 MG in NS (IVPB) 50 ML IV SCH ×2 (00:52→11:53)
[2021-10-12] MEDS: VANCOMYCIN 1 GM/NS 250 ML IVPB IV SCH ×4 (00:54→13:23)
[2021-10-12] MEDS: AMPICILLIN 1,000 MG/NS 50 ML IVPB IV SCH ×12 (01:53→21:14)
[2021-10-12] MEDS: ONDANSETRON 4 MG/2 ML (SDV) Z0FRAN IVP PRN ×2 (02:32→10:18)
[2021-10-12] MEDS: NOREPINEPHRINE 8 MG/250 ML 250 ML IV SCH (02:32)
[2021-10-12 04:50] LABS: BASOPHILS % (AUTO) 1 % (0-10); EOSINOPHILS % (AUTO) 0 % (0-10); HEMATOCRIT 36 % (35-52); HEMOGLOBIN 11.8 g/dL (11.5-16.0); LYMPHOCYTES # (AUTO) 1.2 10^3/uL (1.0-4.0); LYMPHOCYTES % (AUTO) 14 % (12-44); MEAN CORPUSCULAR HEMOGLOBIN 29 pg (25-34); MEAN CORPUSCULAR HGB CONC 33 g/dL (32-36); MEAN CORPUSCULAR VOLUME 88 fL (80-99); MEAN PLATELET VOLUME 10.1 fL (9.0-12.2); MONOCYTES # (AUTO) 0.7 10^3/uL (0.0-1.0); MONOCYTES % (AUTO) 8 % (0-12); NEUTROPHILS # (AUTO) 6.6 10^3/uL (1.8-7.8); NEUTROPHILS % (AUTO) 77 % (42-75); PLATELET COUNT 88 10^3/uL (130-400); WHITE BLOOD COUNT 8.6 10^3/uL (4.3-11.0)
[2021-10-12 05:03] LABS: POTASSIUM 3.7 MMOL/L (3.6-5.0)
[2021-10-12 05:04] LABS: CALCIUM 8.4 MG/DL (8.5-10.1)
[2021-10-12 05:05] LABS: TOTAL PROTEIN 5.8 GM/DL (6.4-8.2)
[2021-10-12 05:07] LABS: BILIRUBIN,TOTAL 0.6 MG/DL (0.1-1.0)
[2021-10-12 05:08] LABS: PHOSPHORUS 2.6 MG/DL (2.3-4.7)
[2021-10-12 05:09] LABS: CREATININE SERUM 0.91 MG/DL (0.60-1.30)
[2021-10-12 05:11] LABS: MAGNESIUM 1.5 MG/DL (1.6-2.4)
[2021-10-12] MEDS: POTASSIUM CL 10MEQ/50ML IVPB 50 ML IV SCH (05:24)
[2021-10-12] MEDS: MAGNESIUM 1 GM/100 ML IVPB 100 ML IV SCH ×3 (05:38→06:50)
[2021-10-12] MEDS: KCL 20 MEQ TAB (K-DUR) PO SCH (05:38)
[2021-10-12] MEDS: inSUlin ASPART (NovoLOG) 1 UNIT/0.01 ML (CHARGE PER UNIT) SC SCH ×4 (05:54→21:15)
--- NOTE | 2021-10-12 07:46 | Diagnostic Imaging Report ---
INDICATION: Dyspnea. EXAMINATION: Chest 10/12/2021. COMPARISON: 10/11/2021 FINDINGS: There is cardiomegaly with pulmonary vascular congestion. Findings of mild edema seen left worse than right. A left base infiltrate suspected. A small left effusion not excluded. There is no pneumothorax. IMPRESSION: 1. Findings of mild asymmetric pulmonary edema with infiltrate and left effusion also noted. Dictated by: Dictated on workstation # [id number]
--- NOTE | 2021-10-12 07:46 | Progress Note ---
Progress Note Assessment/Plan Date Seen by Provider: Oct 12, 2021 Time Seen by Provider: 07:42 Events since last exam Anesthesia consulted to performed lumbar puncture on 10/11/21. Unable to perform procedure due to recent lovenox dosing and need for it to be held for 12 hours per guidelines. Reviewed this morning for possible attempt today, and platelet count has now dropped from to 88k. Will talk with staff, and our department will await update re:consult. Assessment/Plan will wait to hear back from Dr. Benjamin Vitals Last set of Vitals Signs Vital Signs Date Time Temp Pulse Resp B/P (MAP) Pulse Ox O2 Delivery O2 Flow Rate FiO2 10/12/21 06:00 82 157/87 (110) 94 Nasal Cannula 3.00 10/12/21 04:00 37.0 10/12/21 04:00 18 I&O I&O Intake and Output 10/12/21 00:00 Intake Total 2140 ml Output Total 595 ml Balance 1545 ml Intake Oral 40 ml IV Total 2100 ml Output Urine Total 595 ml Labs Laboratory Tests 10/11/21 09:32: Lactic Acid Level 1.48 10/11/21 11:40: Glucometer 264H 10/11/21 15:52: Glucometer 267H 10/11/21 20:50: Glucometer 236H 10/12/21 04:10: White Blood Count 8.6, Red Blood Count 4.06, Hemoglobin 11.8#, Hematocrit 36, Mean Corpuscular Volume 88, Mean Corpuscular Hemoglobin 29, Mean Corpuscular Hemoglobin Concent 33, Red Cell Distribution Width 13.3, Platelet Count 88L, Mean Platelet Volume 10.1, Immature Granulocyte % (Auto) 1, Neutrophils (%) (Auto) 77H, Lymphocytes (%) (Auto) 14, Monocytes (%) (Auto) 8, Eosinophils (%) (Auto) 0, Basophils (%) (Auto) 1, Neutrophils # (Auto) 6.6, Lymphocytes # (Auto) 1.2, Monocytes # (Auto) 0.7, Eosinophils # (Auto) 0.0, Basophils # (Auto) 0.0, Immature Granulocyte # (Auto) 0.1, Sodium Level 136, Potassium Level 3.7, Chloride Level 106, Carbon Dioxide Level 18L, Anion Gap 12, Blood Urea Nitrogen 16, Creatinine 0.91, Estimat Glomerular Filtration Rate 70, BUN/Creatinine Ratio 18, Glucose Level 258H, Calcium Level 8.4L, Corrected Calcium 9.2, Phosphorus Level 2.6, Magnesium Level 1.5L, Total Bilirubin 0.6, Aspartate Amino Transf (AST/SGOT) 17, Alanine Aminotransferase (ALT/SGPT) 16, Alkaline Phosphatase 83, Total Protein 5.8L, Albumin 3.0L Focused Exam Lactate Level 10/11/21 05:00: Lactic Acid Level 2.34*H 10/11/21 09:32: Lactic Acid Level 1.48 Time of Focused Exam: 06:15 Clinical Quality Measures AMI/AHF: ASA po Prior to arrival: CEE Joe CRNA Oct 12, 2021 07:46
[2021-10-12] MEDS: VASOPRESSIN INJECTION 20 UNIT in NS (IVPB) 100 ML IV SCH (07:48)
[2021-10-12] MEDS: hydrALAZINE (APESOLINE) 20 MG/ML VIAL IV PRN ×2 (08:22→16:34)
[2021-10-12] MEDS: NS IV 1000 ML 1,000 ML IV SCH (08:37)
--- NOTE | 2021-10-12 08:53 | Progress Note - Hospitalist ---
Subjective HPI/CC On Admission Date Seen by Provider: Oct 12, 2021 Time Seen by Provider: 08:47 Patient is 66-year-old female with past medical history of hypertension, yyx-bjdptbi-ikkxorixf diabetes type 2 who presented to the emergency department due to fever and confusion. I saw her in the ICU and she is quite altered and mostly just mumbles. I called and spoke with her who provided the history. He states that she was in her normal state of health yesterday morning when he went to work and when he got home around 5 or 530 she told him that she had been freezing all day and was going to take a hot bath. After the bath she was so weak she could not get out of the bathtub which is very abnormal for her. He checked her blood sugar and it was elevated at 270 which is again abnormal for her. 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 She was only able to complain of left breast pain to him. This continued to worsen throughout the night prompting him to seek care in the emergency room. CT of her chest revealed a left lower lobe pneumonia and she was admitted to the ICU for severe sepsis. Subjective/Events-last exam Pt reports doing much better today. Now is able to tell me she had been coughing and feeling weak for a couple of days prior to arrival. Focused Exam Lactate Level 10/11/21 05:00: Lactic Acid Level 2.34*H 10/11/21 09:32: Lactic Acid Level 1.48 Time of Focused Exam: 06:15 Objective Exam Vital Signs Vital Signs Date Time Temp Pulse Resp B/P (MAP) Pulse Ox O2 Delivery O2 Flow Rate FiO2 10/12/21 08:00 36.8 10/12/21 07:48 85 10/12/21 06:00 157/87 (110) 94 Nasal Cannula 3.00 10/12/21 04:00 18 Capillary Refill : Less Than 3 Seconds General Appearance: No Apparent Distress, Chronically ill, Obese Respiratory: No Accessory Muscle Use; No Crackles; Decreased Breath Sounds (in bases), Other (on 3.5lpm) Cardiovascular: Regular Rate, Rhythm, No Murmur Gastrointestinal: Normal Bowel Sounds, Non Tender, Soft Extremity: No Calf Tenderness, No Pedal Edema Neurologic/Psychiatric: Alert, Oriented x3 Results/Procedures Lab Laboratory Tests 10/12/21 04:10 Patient resulted labs reviewed. Imaging: Reviewed Imaging Report Assessment/Plan Assessment and Plan Assess & Plan/Chief Complaint Severe Sepsis CAP Metabolic encephalopathy- resolved Tachycardiac with leukocytosis and lactic acidosis CT chest revealed LLL consolidation Await cultures Discussed with TeleICU and will ordered LP Discussed with Anesthesia, unable to get LP due to Lovenox being given yesterday and now unable due to thrombocytopenia Expanded abx coverage to include meningitis coverage- continue for today but with rapid improvement unlikely to be meningitis Discussed this with patient who states she would prefer not to have LP if able to avoid HTN BP improved today Resume home meds Hydralzine prn IDDMII SSI only as on metformin Med rec now shows chronic Insulin use, will add basal insulin DVT ppx: Lovenox on hold for thrombocytopenia, SCDs Diagnosis/Problems Diagnosis/Problems (1) Severe sepsis Status: Acute (2) CAP (community acquired pneumonia) Qualifiers: Laterality: left Lung location: lower lobe of lung Qualified Codes: J 18.9 - Pneumonia, unspecified organism (3) Non-insulin dependent type 2 diabetes mellitus Status: Chronic (4) Encephalopathy acute Status: Acute (5) 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 Status: Acute Qualifiers: 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 type: unspecified Qualified Codes: I10 - Essential (primary) hypertension (6) Pneumonia of left lower lobe due to infectious organism Status: Acute Clinical Quality Measures AMI/AHF: ASA po Prior to arrival: ETELVINA Warren MD Oct 12, 2021 08:53
[2021-10-12] MEDS ORDERED: AZITHROMYCIN 500 MG/NS 250 ML IVPB IV SCH ×2 (09:00)
[2021-10-12] MEDS ORDERED: cefTRIAXone 1 GM IV (PRE-MIX) 50 ML IV SCH (09:00)
[2021-10-12] MEDS ORDERED: ENOXAPARIN 40 MG/0.4 ML (LOVENOX) SYR SC SCH (09:00)
[2021-10-12] MEDS: TOLTERODINE LA 2 MG (DETROL LA) CAP PO SCH (09:27)
[2021-10-12] MEDS: lisINopril 20 MG (PRINIVIL) TABLET PO SCH ×2 (09:27→21:15)
[2021-10-12] MEDS: meTOprolol SUCCINATE 100 MG (TOPROL XL) TAB PO SCH (09:28)
--- NOTE | 2021-10-12 10:55 | Tele-ICU Progress Note ---
Subjective Date Seen by a Provider: Oct 12, 2021 Time Seen by a Provider: 10:55 Subjective/Events-last exam (Tele-ICU Physician , Progress Note ) Available chart/ vitals / labs / Images reviewed Video assessment done using teleICU camera, rest of exam as per RN Discussed with RN , EXAM PER RN Events overnight : febrile 37 FiO2 - 3l I/O = pos 1500 Drips: Pressors: , hemodynamically stable Consultants: Hospital course: (10/11) 66 Y admitted with sepsis pneumonia, HTN, AMS, CP, CTA - no PE A/P LL PNA ( CTA - NO PE 10/11, NEG flu , covid - cover for CAP / meningitis - TO NARROW DOWN TOMORROW - follow cx - LLL infiltrate is dence , but relatively small - 5 cm , follow close for resolution = WORSENING 10/12 with eveolving PNA and agressive hydration ANS change- rapid improvement - CTH 10/11 nigative - low suspicios for fungal infection from lungs given immunocompetent host - follow closeluy - considered LP - but not done due to Lovenox being given yesterday and now unable due to thrombocytopenia- coverage was expanded to meningitis 10/12 DM II -ISS tachycardia - resume home betablocker - follow thrombocutopenia - with infection and delutional stop IVF - follow Lines : periph (Central Line Necessity Reviewed) Betts: + OG: Nutrition: Analgesia: Anxiety/ delirium VTE Prophylaxis: lovenox 40 - ? on hold as per Stress Ulcer Prophylaxis: Plans in collaboration with bedside consultants and IM MDs. Discussed with RN to reach out if any questions or concerns A total of 33 minutes of critical care time was devoted to this patient today, required to treat and/or prevent further deterioration of critical care condition ( as above ) . Sepsis Event Evaluation Height, Weight, BMI Height: 5'2.00" Weight: 163lbs. 0oz. 73.398777ry; 34.02 BMI Method:Stated Focused Exam Lactate Level 10/11/21 05:00: Lactic Acid Level 2.34*H 10/11/21 09:32: Lactic Acid Level 1.48 Time of Focused Exam: 06:15 Exam Exam Patient acknowledged, consented, and participated in this virtual visit which was conducted using real time audio/video Vital Signs Date Time Temp Pulse Resp B/P (MAP) Pulse Ox O2 Delivery O2 Flow Rate FiO2 10/12/21 08:00 Nasal Cannula 3.00 10/12/21 08:00 36.8 10/12/21 07:48 85 10/12/21 07:00 87 17 153/83 (106) 92 Nasal Cannula 3.00 10/12/21 07:00 88 10/12/21 06:00 82 157/87 (110) 94 Nasal Cannula 3.00 10/12/21 05:00 93 140/62 (88) 91 Nasal Cannula 3.00 10/12/21 04:00 37.0 10/12/21 04:00 Nasal Cannula 3.00 10/12/21 04:00 85 18 140/68 (92) 95 Nasal Cannula 3.00 10/12/21 03:00 91 21 166/88 (114) 91 Nasal Cannula 3.00 10/12/21 02:00 80 19 149/83 (105) 93 Nasal Cannula 3.00 10/12/21 01:00 77 31 139/91 (107) 93 Nasal Cannula 3.00 10/12/21 01:00 77 10/12/21 00:00 94 27 150/83 (105) 92 Nasal Cannula 3.00 10/12/21 00:00 Nasal Cannula 3.00 10/12/21 00:00 35.9 10/11/21 23:00 96 14 150/75 (100) 95 Nasal Cannula 3.00 10/11/21 22:00 93 20 139/70 (93) 94 Nasal Cannula 3.00 10/11/21 21:34 Nasal Cannula 3.00 10/11/21 21:00 96 31 128/71 (90) 96 Nasal Cannula 3.00 10/11/21 20:30 98 22 137/75 (95) 95 Nasal Cannula 3.00 10/11/21 20:00 36.8 10/11/21 19:30 Nasal Cannula 3.00 10/11/21 19:00 101 26 144/88 (106) 92 Nasal Cannula 3.00 10/11/21 19:00 101 10/11/21 18:00 93 20 141/84 (103) 94 Nasal Cannula 3.00 10/11/21 17:00 111 24 145/79 (101) 90 Nasal Cannula 3.00 10/11/21 16:00 106 22 140/81 (100) 95 Nasal Cannula 3.00 10/11/21 16:00 Nasal Cannula 3.00 10/11/21 15:57 36.9 10/11/21 15:00 112 27 136/82 (100) 93 Nasal Cannula 3.00 10/11/21 14:00 113 18 136/78 (97) 95 Nasal Cannula 3.00 10/11/21 13:00 118 30 111/68 (82) 93 Nasal Cannula 3.00 10/11/21 13:00 119 10/11/21 12:00 37.2 10/11/21 12:00 Nasal Cannula 3.00 10/11/21 12:00 125 26 132/79 (96) 95 Nasal Cannula 3.00 10/11/21 11:56 38.4 10/11/21 11:22 38.9 10/11/21 11:00 122 102/62 (75) 96 Nasal Cannula 3.00 I & O 10/12/21 07:00 Intake Total 590 ml Output Total 845 ml Balance -255 ml Height & Weight Height: 5'2.00" Weight: 163lbs. 0oz. 73.255292zl; 34.02 BMI Method:Stated General Appearance: Mild Distress, Obese HEENT: PERRL/EOMI, Moist Mucous Membranes; No Scleral Icterus (L), No Scleral Icterus (R) Neck: Normal Inspection, Supple Respiratory: Lungs Clear, No Accessory Muscle Use, No Respiratory Distress Cardiovascular: Regular Rate, Rhythm, No JVD, No Murmur Capillary Refill: Less Than 3 Seconds Peripheral Pulses: 2+ Carotid (R), 2+ Carotid (L), 2+ Radial Pulses (R), 2+ Rad ial Pulses (L) Extremity: Normal Capillary Refill, No Calf Tenderness, No Pedal Edema Neurologic/Psychiatric: Alert; No Facial Droop; Other (drowsy with slowed mentation, mumbling) Skin: Normal Color, Warm/Dry Results Lab Laboratory Tests 10/11/21 04:00 10/12/21 04:10 Assessment/Plan Assessment/Plan . KARENA CALZADA MD Oct 12, 2021 10:55
[2021-10-13] VITALS (14 sets, daily range): BP systolic 131–184; BP diastolic 71–98
[2021-10-13] MEDS ORDERED: TROUGH ORDER-PHARMACY XX NR
[2021-10-13] MEDS ORDERED: NS (IVPB) 50 ML ONE (00:05)
[2021-10-13] MEDS: cefTRIAXone 2,000 MG in NS (IVPB) 50 ML IV SCH (00:15)
[2021-10-13] MEDS: VANCOMYCIN 1 GM/NS 250 ML IVPB IV SCH ×2 (00:30)
[2021-10-13] MEDS: AMPICILLIN 1,000 MG/NS 50 ML IVPB IV SCH ×4 (00:45→04:50)
[2021-10-13] MEDS: ONDANSETRON 4 MG/2 ML (SDV) Z0FRAN IVP PRN (01:30)
[2021-10-13 02:22] LABS: BASOPHILS % (AUTO) 0 % (0-10); EOSINOPHILS % (AUTO) 0 % (0-10); HEMATOCRIT 38 % (35-52); HEMOGLOBIN 12.4 g/dL (11.5-16.0); LYMPHOCYTES # (AUTO) 1.7 10^3/uL (1.0-4.0); LYMPHOCYTES % (AUTO) 17 % (12-44); MEAN CORPUSCULAR HEMOGLOBIN 29 pg (25-34); MEAN CORPUSCULAR HGB CONC 33 g/dL (32-36); MEAN CORPUSCULAR VOLUME 88 fL (80-99); MEAN PLATELET VOLUME 10.3 fL (9.0-12.2); MONOCYTES # (AUTO) 0.7 10^3/uL (0.0-1.0); MONOCYTES % (AUTO) 7 % (0-12); NEUTROPHILS # (AUTO) 7.5 10^3/uL (1.8-7.8); NEUTROPHILS % (AUTO) 76 % (42-75); PLATELET COUNT 114 10^3/uL (130-400)
[2021-10-13 02:23] LABS: ALBUMIN 3.1 GM/DL (3.2-4.5); BILIRUBIN,TOTAL 0.5 MG/DL (0.1-1.0); CALCIUM 8.4 MG/DL (8.5-10.1); CREATININE SERUM 0.98 MG/DL (0.60-1.30); MAGNESIUM 1.9 MG/DL (1.6-2.4); PHOSPHORUS 2.2 MG/DL (2.3-4.7); POTASSIUM 4.1 MMOL/L (3.6-5.0); TOTAL PROTEIN 6.2 GM/DL (6.4-8.2)
[2021-10-13] MEDS: MAGNESIUM 1 GM/100 ML IVPB 100 ML IV SCH (06:06)
[2021-10-13] MEDS: POTASSIUM CL 10MEQ/50ML IVPB 50 ML IV SCH (06:06)
[2021-10-13] MEDS: KCL 20 MEQ TAB (K-DUR) PO SCH (06:06)
[2021-10-13] MEDS: inSUlin ASPART (NovoLOG) 1 UNIT/0.01 ML (CHARGE PER UNIT) SC SCH ×4 (06:52→21:13)
--- NOTE | 2021-10-13 07:52 | Diagnostic Imaging Report ---
EXAMINATION: Chest radiograph, portable AP view. DATE: 10/13/2021 5:49 AM INDICATION: 66-year-old female, dyspnea. COMPARISON: October 12, 2021. FINDINGS: Heart size and mediastinal contours are unchanged. There is no identified pneumothorax. There is no large pleural effusion. There is increased attenuation projecting over the left mid to lower lung zone which is unchanged since the comparison exam. The right lung appears grossly clear. IMPRESSION: 1. Unchanged nonspecific left mid and lower lung zone consolidation which may relate to pneumonia, aspiration, or other alveolar consolidative process. There may be components of atelectasis present. Dictated by: Dictated on workstation # [id number]
--- NOTE | 2021-10-13 08:24 | Progress Note - Hospitalist ---
Subjective HPI/CC On Admission Date Seen by Provider: Oct 13, 2021 Time Seen by Provider: 08:20 Patient is 66-year-old female with past medical history of hypertension, fag-[id number]-zkslalbna diabetes type 2 who presented to the emergency department due to fever and confusion. I saw her in the ICU and she is quite altered and mostly just mumbles. I called and spoke with her who provided the history. He states that she was in her normal state of health yesterday morning when he went to work and when he got home around 5 or 530 she told him that she had been freezing all day and was going to take a hot bath. After the bath she was so weak she could not get out of the bathtub which is very abnormal for her. He checked her blood sugar and it was elevated at 270 which is again abnormal for her. 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 She was only able to complain of left breast pain to him. This continued to worsen throughout the night prompting him to seek care in the emergency room. CT of her chest revealed a left lower lobe pneumonia and she was admitted to the ICU for severe sepsis. Subjective/Events-last exam Pt reports doing well. No complaints. Breathing easier. RN at bedside and only concern is BP has been somewhat high. Focused Exam Lactate Level 10/11/21 05:00: Lactic Acid Level 2.34*H 10/11/21 09:32: Lactic Acid Level 1.48 Time of Focused Exam: 06:15 Objective Exam Vital Signs Vital Signs Date Time Temp Pulse Resp B/P (MAP) Pulse Ox O2 Delivery O2 Flow Rate FiO2 10/13/21 08:00 Nasal Cannula 3.00 10/13/21 06:00 80 170/97 (121) 93 10/13/21 04:00 36.7 10/13/21 04:00 25 Capillary Refill : Less Than 3 Seconds General Appearance: No Apparent Distress, WD/WN Respiratory: Lungs Clear, No Respiratory Distress Cardiovascular: Regular Rate, Rhythm, No Murmur Neurologic/Psychiatric: Alert, Oriented x3 Results/Procedures Lab Laboratory Tests 10/13/21 01:10 Patient resulted labs reviewed. Imaging: Reviewed Imaging Report Assessment/Plan Assessment and Plan Assess & Plan/Chief Complaint Severe Sepsis CAP Metabolic encephalopathy- resolved Tachycardiac with leukocytosis and lactic acidosis CT chest revealed LLL consolidation Cultures with NGTD Unable to get LP previously due to lovenox and thrombocytopenia but with rapid improvement by the evening of admission very unlikely to be meningitis DC Vanc and Ampicillin HTN BP high but typically under SBP 180, home meds resumed and hopefully will get to steady state today and have been control Hydralzine prn IDDMII SSI only as on metformin Continue Levemir but inscrease as BS still 299 DVT ppx: Lovenox on hold for thrombocytopenia, SCDs Diagnosis/Problems Diagnosis/Problems (1) Severe sepsis Status: Acute (2) CAP (community acquired pneumonia) Qualifiers: Laterality: left Lung location: lower lobe of lung Qualified Codes: J18.9 - Pneumonia, unspecified organism (3) Non-insulin dependent type 2 diabetes mellitus Status: Chronic (4) Encephalopathy acute Status: Acute (5) 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 Status: Acute Qualifiers: 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 type: unspecified Qualified Codes: I10 - Essential (primary) hypertension (6) Pneumonia of left lower lobe due to infectious organism Status: Acute Clinical Quality Measures AMI/AHF: ASA po Prior to arrival: ETELVINA Warren MD Oct 13, 2021 08:24
[2021-10-13] MEDS: TOLTERODINE LA 2 MG (DETROL LA) CAP PO SCH (08:35)
[2021-10-13] MEDS: meTOprolol SUCCINATE 100 MG (TOPROL XL) TAB PO SCH (08:35)
[2021-10-13] MEDS: lisINopril 20 MG (PRINIVIL) TABLET PO SCH ×2 (08:35→19:51)
--- NOTE | 2021-10-13 10:31 | Tele-ICU Progress Note ---
Subjective Date Seen by a Provider: Oct 13, 2021 Time Seen by a Provider: 10:30 Subjective/Events-last exam (Tele-ICU Physician , Progress Note ) Available chart/ vitals / labs / Images reviewed Video assessment done using teleICU camera, rest of exam as per RN Discussed with RN , EXAM PER RN Events overnight : febrile 37 FiO2 - 3l I/O = pos 1500 Drips: Pressors: , hemodynamically stable Consultants: Hospital course: (10/11) 66 Y admitted with sepsis pneumonia, HTN, AMS, CP, CTA - no PE 10/12- AAO A/P LL PNA ( CTA - NO PE 10/11, NEG flu , covid - cover for CAP - follow cx - LLL infiltrate is dence , but relatively small - 5 cm , follow close for resolution = WORSENING 10/12 with eveolving PNA and agressive hydration - follow , clinically better ANS change- rapid improvement - CTH 10/11 nigative - resolved DM II -ISS tachycardia - resume home betablocker - resolved thrombocutopenia - with infection and delutional Lines : periph (Central Line Necessity Reviewed) Betts: + OG: Nutrition: Analgesia: Anxiety/ delirium VTE Prophylaxis: lovenox 40 - ? on hold as per - to RESUME if ok with PCP ? Stress Ulcer Prophylaxis: Plans in collaboration with bedside consultants and IM MDs. Discussed with RN to reach out if any questions or concerns A total of 31 minutes of critical care time was devoted to this patient today, required to treat and/or prevent further deterioration of critical care condition ( as above ) . Sepsis Event Evaluation Height, Weight, BMI Height: 5'2.00" Weight: 163lbs. 0oz. 73.122149qw; 34.02 BMI Method:Stated Focused Exam Lactate Level 10/11/21 05:00: Lactic Acid Level 2.34*H 10/11/21 09:32: Lactic Acid Level 1.48 Time of Focused Exam: 06:15 Exam Exam Patient acknowledged, consented, and participated in this virtual visit which was conducted using real time audio/video Vital Signs Date Time Temp Pulse Resp B/P (MAP) Pulse Ox O2 Delivery O2 Flow Rate FiO2 10/13/21 08:00 Nasal Cannula 3.00 10/13/21 08:00 76 23 166/92 (116) 92 Nasal Cannula 4.00 10/13/21 06:45 77 10/13/21 06:00 80 170/97 (121) 93 Nasal Cannula 4.00 10/13/21 05:00 80 167/96 (119) 97 Nasal Cannula 4.00 10/13/21 04:00 Nasal Cannula 3.00 10/13/21 04:00 36.7 10/13/21 04:00 87 25 153/80 (104) 90 Nasal Cannula 4.00 10/13/21 03:00 84 144/74 (97) 92 Nasal Cannula 4.00 10/13/21 02:30 Nasal Cannula 4.00 10/13/21 02:00 84 17 160/81 (107) 90 Nasal Cannula 3.00 10/13/21 01:00 90 10/13/21 01:00 90 22 173/98 (123) 92 Nasal Cannula 3.00 10/13/21 00:00 Nasal Cannula 3.00 10/13/21 00:00 37.1 91 24 131/71 (91) 90 Nasal Cannula 3.00 10/12/21 23:00 94 21 145/71 (95) 93 Nasal Cannula 3.00 10/12/21 22:00 97 23 180/98 (125) 93 Nasal Cannula 3.00 10/12/21 21:00 102 16 162/83 (109) 93 Nasal Cannula 3.00 10/12/21 20:00 Nasal Cannula 3.00 10/12/21 20:00 99 19 147/75 (99) 92 Nasal Cannula 3.00 10/12/21 19:40 36.8 10/12/21 19:00 104 20 156/86 (109) 92 Nasal Cannula 3.00 10/12/21 19:00 104 10/12/21 18:27 Nasal Cannula 3.00 10/12/21 18:00 101 15 155/87 (109) 93 Nasal Cannula 3.00 10/12/21 17:00 101 25 144/74 (97) 93 Nasal Cannula 3.00 10/12/21 16:00 86 21 172/88 (116) 92 Nasal Cannula 3.00 10/12/21 16:00 Nasal Cannula 3.00 10/12/21 15:54 36.8 10/12/21 15:00 91 28 156/92 (113) 90 Nasal Cannula 3.00 10/12/21 14:00 92 24 150/80 (103) 92 Nasal Cannula 3.00 10/12/21 13:00 96 10/12/21 13:00 96 23 148/84 (105) 92 Nasal Cannula 3.00 10/12/21 12:00 Nasal Cannula 3.00 10/12/21 12:00 36.8 10/12/21 12:00 96 20 150/79 (102) 93 Nasal Cannula 3.00 10/12/21 11:00 112 6 151/83 (105) 95 Nasal Cannula 3.00 I & O 10/13/21 07:00 Intake Total 1050 ml Output Total 1225 ml Balance -175 ml Height & Weight Height: 5'2.00" Weight: 163lbs. 0oz. 73.391080nv; 34.02 BMI Method:Stated General Appearance: No Apparent Distress, WD/WN HEENT: PERRL/EOMI, Moist Mucous Membranes; No Scleral Icterus (L), No Scleral Icterus (R) Neck: Normal Inspection, Supple Respiratory: Lungs Clear, No Respiratory Distress Cardiovascular: Regular Rate, Rhythm, No Murmur Capillary Refill: Less Than 3 Seconds Peripheral Pulses: 2+ Carotid (R), 2+ Carotid (L), 2+ Radial Pulses (R), 2+ Radial Pulses (L) Extremity: Normal Capillary Refill, No Calf Tenderness, No Pedal Edema Neurologic/Psychiatric: Alert, Oriented x3 Skin: Normal Color, Warm/Dry Results Lab Laboratory Tests 10/12/21 04:10 10/13/21 01:10 Assessment/Plan Assessment/Plan ` KARENA CALZADA MD Oct 13, 2021 10:31
[2021-10-13] MEDS ORDERED: TROUGH ORDER-PHARMACY XX ONE (12:00)
--- NOTE | 2021-10-13 12:23 | Occupational Therapy Eval ---
OT Evaluation-General/PLF Medical Diagnosis Admission Date Oct 11, 2021 at 08:27 Medical Diagnosis: severe sepsis Onset Date: Oct 11, 2021 Therapy Diagnosis Therapy Diagnosis: decreased ADL Status Height/Weight Height (Feet): 5 Height (Inches): 2.00 Weight (Pounds): 163 Weight (Ounces): 0 Precautions Precautions/Isolations: Droplet Isolation Referral Physician: Cassidy Referral Reason: Evaluation/Treatment Medical History Additional Medical History HTN, DM, arthritis, gout Current History ED with fever and confusion. CT revealed LLL PNA, admited to ICU for severe sepsis Social History Home: Multilevel Current Living Status: Spouse Entry Into Home: Stairs With Railing Steps Into Home: 3 ADL-Prior Level of Function SCALE: Activities may be completed with or without assistive devices. 8-Xtqblaiocl-lswyren completes the activity by him/herself with no assistance from a helper. 5-Set-up or Clean-up Assistance-helper sets up or cleans up; patient completes activity. Spangle assists only prior to or following the activity. 4-Supervision or Touching Assistance-helper provides verbal cues and/or touching/steadying and/or contact guard assistance as patient completes activity. Assistance may be provided throughout the activity or intermittently. 3-Partial/Moderate Assistance-helper does LESS THAN HALF the effort. Spangle lifts, holds or supports trunk or limbs, but provides less than half the effort. 2-Substantial/Maximal Assistance-helper does MORE THAN HALF the effort. Spangle lifts or holds trunk or limbs and provides more than half the effort. 6-Uveibaepk-qcfheg does ALL the effort. Patient does none of the effort to complete the activity. Or, the assistance of 2 or more helpers is required for the patient to complete the activity. If activity was not attempted, code reason: 7-Patient Refused. 9-Not Applicable-not attempted and the patient did not perform the activity before the current illness, exacerbation or injury. 10-Not Attempted due to Environmental Limitations-(lack of equipment, weather restraints, etc.). 88-Not Attempted due to Medical Conditions or Safety Concerns. ADL PLOF Comments Pt reports IND with ADLs and functional mobility at PLOF, no AD. Self Care: Independent Functional Cognition: Independent OT Current Status Subjective Pt in bed, agreeable to OT tx. Pt's present throughout tx. Mental Status/Objective Patient Orientation: Person, Place, Time, Situation Attachments: Telemetry Current Hand Dominance: Right Upper Extremity ROM WFL Upper Extremity Coordination WFL Upper Extremity Strength grossly 3/5 ADL-Treatment Eating (QC): 6 (Per pt report) Oral Hygiene (QC): 5 (per clinical judgment) Other Treatments Pt up in bed, agreeable to OT Tx. Pt provided information about PLOF and home set up and participated in UE screen. Pt transferred supine to sit EOB, CGA. Pt stood EOB ~2 mins, CGA, then returned EOB. Pt agreeable to getting up to recliner. Pt transferred bed to recliner with CGA. Post tx, pt up in recliner, call light in reach and all needs met, present. Pt's nurse aware of pt's position. Education OT Patient Education: Correct positioning, Energy conservation, Modified ADL techniques, Progress toward Goal/Update tx plan, Purpose of tx/functional activities, Rehab process Teaching Recipient: Patient Teaching Methods: Discussion Response to Teaching: Verbalize Understanding OT Senior Care Goals [employer] Goals Time Frame: Oct 28, 2021 Eating (QC): 6 Oral Hygiene (QC): 6 Toileting Hygiene (QC): 6 Shower/Bathe Self (QC): 6 Upper Body Dressing (QC): 6 Lower Body Dressing (QC): 6 On/Off Footwear (QC): 6 Additional Goals: 1-Demonstrate ADL Tasks, 2-Verbalize Understanding, 3- ImproveStrength/[place] 1=Demonstrate adherence to instructed precautions during ADL tasks. 2=Patient will verbalize/demonstrate understanding of assistive devices/m odifications for ADL. 3=Patient will improve strength/tolerance for activity to enable patient to perform ADL's. OT Education/Plan Problem List/Assessment Assessment: Decreased Activ Tolerance, Decreased UE Strength, Impaired Funct Balance, Impaired I ADL's, Impaired Self-Care Skills Discharge Recommendations Plan/Recommendations: Continue POC Treatment Plan/Plan of Care Patient would benefit from OT for education, treatment and training to promote independence in ADL's, mobility, safety and/or upper extremity function for ADL's. Plan of Care: ADL Retraining, Functional Mobility, UE Funct Exercise/Act Treatment Duration: Oct 28, 2021 Frequency: 3 times per week (3-5 times per week) Estimated Hrs Per Day: .25 hour per day Agreement: Yes Rehab Potential: Good Time/GCodes Start Time: 10:48 Stop Time: 11:06 Total Time Billed (hr/min): 18 Billed Treatment Time 1, SHELIA DIETZ OT Oct 13, 2021 12:23
--- NOTE | 2021-10-13 14:06 | Physical Therapy Evaluation ---
PT Evaluation-General Medical Diagnosis Admission Date Oct 11, 2021 at 08:27 Medical Diagnosis: severe sepsis Onset Date: Oct 11, 2021 Therapy Diagnosis Therapy Diagnosis: Impaired activity tolerance Height/Weight Height (Feet): 5 Height (Inches): 2.00 Weight (Pounds): 163 Weight (Ounces): 0 Precautions Precautions/Isolations: Droplet Isolation Weight Bear Status Full Weight Bearing Full Weight Bearing Referral Physician: Cassidy Reason for Referral: Evaluation/Treatment Medical History Pertinent Medical History: Atrial Fib, DM, HTN Current History ER left sided pain Reviewed History: Yes Social History Home: Multilevel Current Living Status: Spouse Entry Into Home: Stairs With Railing PT Steps Into Home: 4 Doesn't need to access second floor Prior Prior Level of Function SCALE: Activities may be completed with or without assistive devices. 0-Obvcnxqmpx-nwuruqi completes the activity by him/herself with no assistance from a helper. 5-Set-up or Clean-up Assistance-helper sets up or cleans up; patient completes activity. Wheeler assists only prior to or following the activity. 4-Supervision or Touching Assistance-helper provides verbal cues and/or touching/steadying and/or contact guard assistance as patient completes activity. Assistance may be provided throughout the activity or intermittently. 3-Partial/Moderate Assistance-helper does LESS THAN HALF the effort. Wheeler lifts, holds or supports trunk or limbs, but provides less than half the effort. 2-Substantial/Maximal Assistance-helper does MORE THAN HALF the effort. Wheeler lifts or holds trunk or limbs and provides more than half the effort. 0-Lfhzijlbe-dsfheb does ALL the effort. Patient does none of the effort to complete the activity. Or, the assistance of 2 or more helpers is required for the patient to complete the activity. If activity was not attempted, code reason: 7-Patient Refused. 9-Not Applicable-not attempted and the patient did not perform the activity before the current illness, exacerbation or injury. 10-Not Attempted due to Environmental Limitations-(lack of equipment, weather restraints, etc.). 88-Not Attempted due to Medical Conditions or Safety Concerns. Bed Mobility: 6 Transfers (B,C,W/C): 6 Gait: 6 Stairs: 6 Indoor Mobility (Ambulation): Independent Stairs: Independent Prior Devices Use: None PT Evaluation-Current Subjective Patient reports that she wants to get out of bed, and is motivated. Pain Numeric Pain Scale: 0-No Pain Location: No Pain Reported Pt/Family Goals To be independent at home and be able to walk with grand kids again. Objective Patient Orientation: Person, Place, Time, Situation Attachments: Oxygen, Betts Catheter ROM/Strength ROM Lower Extremities bilateral LE WFL Strength Lower Extremities RLE: (Hip flexion 4+/5, Knee Extension 4+/5, Knee Flexion 4+/5, Ankle DF 4+/5), LLE: (Hip flexion 4+/5, Knee Extension 4+/5, Knee Flexion 4+/5, Ankle DF 4+/5) Integumentary/Posture Bowel Incontinence: No Bladder Incontinence: Betts Cath Neuromuscular (Tone, Coordination, Reflexes) Intact Sensory Vision: Wears Glasses Hearing: Impaired Hand Dominance: Right Sensation Right Upper Extremit: Intact Sensation Left Upper Extremity: Intact Sensation Right Lower Extremit: Intact Sensation Left Lower Extremity: Intact Transfers Sit to Lying (QC): 4 Lying to Sitting/Side of Bed(Q: 4 Sit to Stand (QC): 4 Gait Does the Patient Walk?: Yes Mode of Locomotion: Walk Anticipated Mode of Locomotion: Walk Walk 10 feet (QC): 4 Walk 50 ft with 2 Turns(QC): 4 Walk 150 ft (QC): 4 Distance: 125ft Gait Assistive Device: FWW Comments/Gait Description Patient was able to ambulate with small steps. Wheelchair Training Does the Pt Use a Wheelchair?: No Type of Wheelchair: N/A Balance Sitting Static: Normal Sitting Dynamic: Good Standing Static: Normal Standing Dynamic: Good Treatment Ambulation Assessment/Needs Patient demonstrated good strength and sensation the LE. Patient tolerated ambulation well but fatigued toward the end. Patients O2 sats were taken during and after ambulating, and remained above 94% Rehab Potential: Good PT Industrial Accountant Goals Industrial Accountant Goals PT Industrial Accountant Goals Time Frame: Oct 22, 2021 Roll Left & Right (QC): 6 Sit to Lying (QC): 6 Lying-Sitting on Side/Bed(QC): 6 Sit to Stand (QC): 6 Chair/Rxq-vp-Yteal Xfer(QC): 6 Toilet Transfer (QC): 6 Car Transfer (QC): 6 Does the Patient Walk: Yes Walk 10 feet (QC): 6 Walk 50ft with 2 Turns (QC): 6 Walk 150 ft (QC): 6 Walking 10ft on Uneven Surface: 6 Does the Pt use WC or Scooter?: No Type: N/A Type: N/A PT Plan Problem List Problem List: Activity Tolerance, Functional Strength, Safety, Balance, Gait, Transfer, Bed Mobility Treatment/Plan Treatment Plan: Continue Plan of Care Treatment Plan: Bed Mobility, Education, Functional Activity [place], Functional Strength, Gait, Safety, Therapeutic Exercise, Transfers Treatment Duration: Nov 10, 2021 Frequency: 6 times per week Estimated Hrs Per Day: .25 hour per day Patient and/or Family Agrees t: Yes Safety Risks/Education Patient Education: Gait Training, Transfer Techniques, Safety Issues Teaching Recipient: Patient Teaching Methods: Discussion Response to Teaching: Verbalize Understanding Time/GCodes Time In: 1313 Time Out: 1329 Total Billed Treatment Time: 16 Total Billed Treatment 1 visit EV Low 16 min MECHELLE SCALES PT Oct 13, 2021 14:06
[2021-10-13] MEDS: hydrALAZINE (APESOLINE) 20 MG/ML VIAL IV PRN (14:23)
[2021-10-13] MEDS ORDERED: amLODIPine 5 MG (NORVASC) TAB PO ONE (16:45)
[2021-10-13] MEDS ORDERED: NITROGLYCERIN 2% OINT 1 GM UNIT DOSE PACKET TOP PRN (16:45)
[2021-10-14 00:14] VITALS: BP 185/84
[2021-10-14 04:14] VITALS: BP 192/90
[2021-10-14] MEDS: inSUlin ASPART (NovoLOG) 1 UNIT/0.01 ML (CHARGE PER UNIT) SC SCH (05:48)
[2021-10-14 05:52] LABS: EOSINOPHILS # (AUTO) 0.2 10^3/uL (0.0-0.3); EOSINOPHILS % (AUTO) 2 % (0-10); NEUTROPHILS % (AUTO) 64 % (42-75)
[2021-10-14 05:54] LABS: BASOPHILS # (AUTO) 0.1 10^3/uL (0.0-0.1); BASOPHILS % (AUTO) 1 % (0-10); HEMATOCRIT 38 % (35-52); HEMOGLOBIN 12.6 g/dL (11.5-16.0); LYMPHOCYTES # (AUTO) 1.6 10^3/uL (1.0-4.0); LYMPHOCYTES % (AUTO) 24 % (12-44); MEAN CORPUSCULAR HEMOGLOBIN 29 pg (25-34); MEAN CORPUSCULAR HGB CONC 33 g/dL (32-36); MEAN CORPUSCULAR VOLUME 87 fL (80-99); MEAN PLATELET VOLUME 9.9 fL (9.0-12.2); MONOCYTES # (AUTO) 0.4 10^3/uL (0.0-1.0); MONOCYTES % (AUTO) 7 % (0-12); NEUTROPHILS # (AUTO) 4.2 10^3/uL (1.8-7.8); PLATELET COUNT 131 10^3/uL (130-400); WHITE BLOOD COUNT 6.6 10^3/uL (4.3-11.0)
[2021-10-14 06:04] LABS: ALBUMIN 3.1 GM/DL (3.2-4.5); POTASSIUM 4.2 MMOL/L (3.6-5.0)
[2021-10-14 06:05] LABS: CALCIUM 8.5 MG/DL (8.5-10.1)
[2021-10-14 06:07] LABS: TOTAL PROTEIN 5.9 GM/DL (6.4-8.2)
[2021-10-14 06:08] LABS: BILIRUBIN,TOTAL 0.6 MG/DL (0.1-1.0)
[2021-10-14 06:10] LABS: CREATININE SERUM 0.83 MG/DL (0.60-1.30); PHOSPHORUS 3.1 MG/DL (2.3-4.7)
[2021-10-14 06:13] LABS: MAGNESIUM 1.8 MG/DL (1.6-2.4)
[2021-10-14] MEDS: KCL 20 MEQ TAB (K-DUR) PO SCH (06:34)
[2021-10-14] MEDS: MAGNESIUM 1 GM/100 ML IVPB 100 ML IV SCH (06:34)
[2021-10-14] MEDS: POTASSIUM CL 10MEQ/50ML IVPB 50 ML IV SCH (06:34)
[2021-10-14 07:19] VITALS: BP 200/91
[2021-10-14] MEDS: TOLTERODINE LA 2 MG (DETROL LA) CAP PO SCH (07:45)
[2021-10-14] MEDS: meTOprolol SUCCINATE 100 MG (TOPROL XL) TAB PO SCH (07:46)
[2021-10-14] MEDS: lisINopril 20 MG (PRINIVIL) TABLET PO SCH (07:46)
[2021-10-14 07:58] VITALS: BP 178/110
[2021-10-14] MEDS ORDERED: cefTRIAXone 2,000 MG/NS 50 ML IVPB IV SCH ×2 (09:00)
[2021-10-14] MEDS ORDERED: amLODIPine 5 MG (NORVASC) TAB PO SCH (09:00)
[2021-10-14] MEDS ORDERED: AZIT250T12 PO (10:26)
[2021-10-14] MEDS ORDERED: AMLO-250 PO (10:26)
[2021-10-14] MEDS ORDERED: CEPH500T PO (10:26)
--- NOTE | 2021-10-14 10:28 | Discharge Inst-Simple/Standard ---
Discharge Inst-Standard Discharge Medications New, Converted or Re-Newed RX: Transmitted to Pharmacy Patient Instructions/Follow Up Plan of Care/Instructions/FU: Please continue to take your medications as written. Please follow up with your primary care dotor to follow up this hospital stay. Activity as Tolerated: Yes Discharge Diet: ADA Diet Return to The Hospital For: Chest pain, shortness of breath, cough, fever, weakness, if you feel you are getting worse. ETELVINA EATON MD Oct 14, 2021 10:28
--- NOTE | 2021-10-14 10:32 | Occ Therapy Progress Note ---
Therapy Progress Note OT visited with pt who states she is hoping to discharge today. She just completed a home O2 study and does not require O2 at home. Pt transferred from recliner, to bathroom, completed toileting, then back to recliner independently. Pt and state they have no concerns with pt's ADL function, and feel like pt is at baseline. No further skilled OT services indicated as pt is independent with self care tasks, and at OF. D/C from OT 1, visit 1015 SHELIA RAVI OT Oct 14, 2021 10:32
--- NOTE | 2021-10-14 10:33 | Discharge Summary ---
Diagnosis/Chief Complaint Date of Admission Oct 11, 2021 at 08:27 Date of Discharge Discharge Date: Oct 14, 2021 Admission Diagnosis Severe Sepsis Primary Care Ashley Brown MD Discharge Diagnosis (1) Severe sepsis Status: Acute (2) CAP (community acquired pneumonia) (3) Non-insulin dependent type 2 diabetes mellitus Status: Chronic (4) Encephalopathy acute Status: Acute (5) 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 Status: Acute (6) Pneumonia of left lower lobe due to infectious organism Status: Acute Discharge Summary Discharge Physical Exam Allergies: Coded Allergies: NSAIDS (Non-Steroidal Anti-Inflamma (Verified Allergy, Unknown, 01/02/19) swelling aspirin (Verified Allergy, Unknown, 01/02/19) swelling Vitals & I&Os Vital Signs Date Time Temp Pulse Resp B/P (MAP) Pulse Ox O2 Delivery O2 Flow Rate FiO2 10/14/21 11:10 10/14/21 08:00 Nasal Cannula 2.00 10/14/21 07:33 93 10/14/21 07:19 36.2 72 18 General Appearance: No Apparent Distress, WD/WN Respiratory: Lungs Clear, No Respiratory Distress Cardiovascular: Regular Rate, Rhythm, No Murmur Neurologic/Psychiatric: Alert, Oriented x3 Hospital Course Patient 66-year-old female who was admitted to the hospital for severe sepsis due to pneumonia. At first there was concern that she had meningitis and antibiotic coverage was expanded for that she was admitted to the ICU. Her mentation improved rapidly though an LP was unable to be performed due to thrombocytopenia. Due to rapid improvement this was deemed unlikely given known pneumonia on imaging. She was titrated off of oxygen and did well. She was able to be discharged home with oral antibiotics to follow-up with her primary care Dr. Brown. Labs (last 24 hrs) Microbiology 10/12/21 Gram Stain - Final, Complete 10/12/21 Sputum Culture - Final, Complete Usual upper respiratory garry YEAST 10/11/21 Blood Culture - Preliminary, Resulted No growth Patient resulted labs reviewed. Pending Labs Imaging: Reviewed Imaging Report Discussion & Recommendations Discharge Planning: >30 minutes discharge planning Discharge Home Medications: Active Scripts Active Azithromycin 250 Mg Tablet 250 Mg PO DAILY Cephalexin 500 Mg Tablet 500 Mg PO BID Amlodipine Besylate 5 Mg Tablet 5 Mg PO DAILY Reported Sleep Tabs (Diphenhydramine HCl) 25 Mg Tablet 25 Mg PO HS Novolin N (Insulin NPH Human Isophane) 100 Unit/1 Ml Vial 85 Unit SQ BID Metoprolol Succinate 200 Mg Tab.er.24h 200 Mg PO DAILY Lisinopril 20 Mg Tablet 20 Mg PO BID Metformin HCl 1,000 Mg Tablet 1,000 Mg PO BID WITH MEALS Tolterodine Tartrate ER (Tolterodine Tartrate) 2 Mg Cap.er.24h 2 Mg PO DAILY Instructions to patient/family Please see electronic discharge instructions given to patient. Clinical Quality Measures AMI/AHF: ASA po Prior to arrival: No Copy Copies To 1: ASHLEY BROWN MD Problem Qualifiers (1) CAP (community acquired pneumonia): Laterality: left Lung location: lower lobe of lung Qualified Codes: J18.9 - Pneumonia, unspecified organism (2) 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: 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 type: unspecified Qualified Codes: I10 - Essential (primary) hypertension ETELVINA EATON MD Oct 14, 2021 10:33
== END 2021-10-14 11:10 | disposition home or self-care (01) | DRG 871 ==
LOC: EDUNIT# 03:42 → ER FS 03:45 → ICU 08:27 → 4TH 10-13 12:50
PROVIDERS: ADMIT Family Medicine; ATTEND Family Medicine
PROC: 009U3ZX Drainage of Spinal Canal, Percutaneous Approach, Diagnostic (ICD-10-PCS; principal; 2021-10-11)
DX: A41.9 Sepsis, unspecified organism (principal); J18.9 Pneumonia, unspecified organism; G93.41 Metabolic encephalopathy; R65.20 Severe sepsis without septic shock; I10 Essential (primary) hypertension; E11.9 Type 2 diabetes mellitus without complications; Z79.84 Long term (current) use of oral hypoglycemic drugs; D69.6 Thrombocytopenia, unspecified; Z87.891 Personal history of nicotine dependence; Z20.822 Contact with and (suspected) exposure to COVID-19; M19.90 Unspecified osteoarthritis, unspecified site; G89.29 Other chronic pain; M54.9 Dorsalgia, unspecified; H40.9 Unspecified glaucoma; Z79.899 Other long term (current) drug therapy
CPT/HCPCS: 36415; 51702; 70450; 71045; 71275; 74174; 80053; 80306; 81000; 82947; 83605; 83690; 83735; 83874; 83880; 84100; 84484; 85007; 85025; 85027; 85379; 85610; 85730; 87040; 87070; 87081; 87205; 87636; 87804; 93005; 93041; 94760; 94761; 96361; 96374; 96375; Q9967